=== PATIENT | male | born 1985 | race Caucasian/White ===

== ENCOUNTER 2022-01-29 12:36 | Emergency (ER) | payer OTHER, SELFPAY ==
[2022-01-29 13:00] VITALS: BP 108/66; PULSE 77; RESP 19; TEMP 37; O2SAT 98; BMI 20.9
[2022-01-29 13:13] LABS: UTC Influenza A Antigen Positive (Negative)
[2022-01-29 13:14] LABS: UTC Influenza B Antigen Negative (Negative)
--- NOTE | 2022-01-29 13:24 | HMH.EDUTC ---
[facility] – [place], [place] Disposition Clinical Impression: Influenza A Disposition: Home, Self-Care Condition on Discharge: Good Instructions: How to Avoid a Cold or Flu, Influenza, DI for Influenza -- Adult, Oseltamivir Additional Instructions: ? Start Tamiflu today if you are going to take it. Discussed risk and possible benefits. ? Lots of rest ? Increase Fluids water, Gatorade, powerade, pedialyte,if infant/toddler/child ? Alternate Tylenol and / or ibuprofen as discussed for fever, aches, chills Follow up IMMEDIATELY with your family doctor for new or worsening Symptoms OR no noticeable improvement over the next 48-72 hours, 911 for difficulty or breathing ? You or your child area contagious until no fever, aches, chills for 24 hours with medication for symptoms ? Help Prevent the spread of influenza: ? Wash your hands often. Use soap and water. Wash your hands after you use the bathroom, change a child's diapers, or sneeze. Wash your hands before you prepare or eat food. Use gel hand cleanser that has 60% alcohol, when soap and water are not available. Do not touch your eyes, nose, or mouth unless you have washed your hands first. ? Cover your mouth when you sneeze or cough. Cough into a tissue or the bend of your arm. If you use a tissue, throw it away immediately and wash your hands. ? Clean shared items with a germ-killing dry cleaner helper. Clean table surfaces, doorknobs, and light switches. Do not share towels, silverware, and dishes with people who are sick. Wash bed sheets, towels, silverware, and dishes with soap and water. ? Wear a mask over your mouth and nose if you are sick. The face mask may help protect others from becoming infected with the flu. Wear the mask when in common areas of your home or if you seek care with a healthcare provider. ? Stay away from others if you are sick. Stay at home until 24 hours after your fever and symptoms are gone. Prescriptions: Brompheniramine/Pseudoephed/Dm [Bromfed Dm Cough Syrup] 5 - 10 ml PO Q4-6H PRN #200 ml PRN Reason: Cough Transmission Status: Sent to [facility] Oseltamivir Phosphate [Tamiflu 75mg Capsule] 75 mg PO BID #10 cap Transmission Status: Sent to [facility] Referrals: Provider,Referral, [Primary Care Provider] - As needed Forms: Work/School Release Time of Disposition: 13:38 Medical Decision Making - Raimundo Inquiry Pt receiving controlled substance: No Raimundo was queried for this patient: No Vital Signs: 01/29/22 13:00 Temperature 98.6 F Temperature Source Oral Pulse Rate [Right Brachial] 77 Respiratory Rate 19 Blood Pressure [Right Arm] 108/66 L Blood Pressure Mean [Right Arm] 80 Blood Pressure Source [Right Arm] Automatic Cuff Blood Pressure Position [Right Arm] Sitting 02 Sat by Pulse Oximetry 98 Oxygen Delivery Method Room Air - Lab Data Lab results reviewed: Yes: I reviewed the patient's lab results. Lab Results 01/29/22 13:08: Influenza Type A Ag Positive A, Influenza Type B Ag Negative [facility] – [place], [place] HPI - General Stated complaint: soa, lightheaded/dizziness, shakey, diarrhea, Time Seen by Provider: 01/29/22 13:26 Mode of Arrival: Ambulatory Source of Information: Patient Limitations: No Limitations Description of Symptoms (Recalled from Triage Doc. by RN): PATIENT C/O SHAKING, BODY ACHES, DIARRHEA, SOA, LIGHT-HEADED AND DIZZINESS X 2 DAYS. 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 States that he is having chills, body aches nasal congestion and not sure if he has had a fever or not State that today he was still feeling
[2022-01-29 13:43] VITALS: BP 108/66; PULSE 77; RESP 19; TEMP 37; O2SAT 98
== END 2022-01-29 13:49 | disposition home or self-care (01) ==
PROVIDERS: Emergency Provider Nurse Practitioner
DX: J10.1 Influenza due to other identified influenza virus with other respiratory manifestations (principal); Z88.0 Allergy status to penicillin
CPT/HCPCS: 87804; 99212; G0463

== ENCOUNTER 2023-02-25 13:18 | Emergency (ER) | payer BC, SELFPAY ==
[2023-02-25 13:40] VITALS: BP 110/64; PULSE 74; RESP 19; TEMP 37.1; O2SAT 99; BMI 20.3
--- NOTE | 2023-02-25 13:53 | EXP.UTC ---
Discharge Plan Disposition Patient Disposition: Home, Self-Care Condition: Good Prescriptions Prescriptions: New azithromycin [Zithromax Z-Philip] 250 mg tablet See Rx Instructions .ROUTE .COMPLEX 5 Days Qty: 6 0RF Rx Instructions: For 250 mg dose pack: take 500 mg today (day 1), then 250 mg for 4 days (days 2-5) methylprednisolone [Medrol (Hpilip)] 4 mg tablets,dose pack See Rx Instructions .Route .COMPLEX 6 Days Qty: 21 0RF Rx Instructions: taper pack; Referrals Follow up/Referrals: Nash Winchester MD [Primary Care Provider] - See instructions Activity Restrictions/Add. Instructions Additional Instructions/Restrictions: *Monitor Temp, Over the counter Motrin or Tylenol as directed/as needed Tylenol every 4 hours and Motrin every 6 hours (as long as your family doctor has told you that you can take it) for fever or pain. and straight to ER if unable to lower temp less than 101.0 after medication given *Warm salt water gargles may help to soothe the throat *Throat Lozenges? *Warm fluids like tea with honey may help to soothe the throat? *Sleep elevated *Humidifier/Vaporizer *Flonase 2 sprays in each nostril daily but be aware that it may take 2-3 days before you notice improvement Take medication as prescribed Follow up IMMEDIATELY for new or worsening symptoms or no Noticeable improvement over the next 48-72 hours. 911 for difficulty breathing or swallowing Clinical Impressions Clinical Impression: Otitis media Qualifiers: Otitis media type: unspecified Laterality: right Qualified Code(s): H66.91 - Otitis media, unspecified, right ear Instructions Patient Instructions: Middle Ear Infection, DI for Nasal Congestion Discharge ED Provider: Jackelyn Dee [facility] [facility] – [place] HPI General Stated complaint: sore throat, jaw pain Time Seen by Provider: 02/25/23 13:53 History of Present Illness Provider Complaint: Patient states that he has been having sore throat, and pain in the right side of jaw up to his ear and it makes his ear hurt States that he has also had some nasal congestion and drainage not sure if he may have a bad tooth or bad ear Related Data Previous Rx's Medication Instructions Recorded azithromycin 250 mg tablet See Rx Instructions PO .COMPLEX 5 02/25/23 (Zithromax Z-Philip) days #6 tabs methylprednisolone 4 mg tablets in See Rx Instructions .Route 02/25/23 a dose pack (Medrol (Philip)) .COMPLEX 6 days #21 tabs Allergies Allergy/AdvReac Type Severity Reaction Status Date / Time Penicillins Allergy Verified 02/25/23 14:07 [facility] Disclaimer: The information contained in this section may have been updated after the patient was seen, as this information can be updated by other users. Social History Smoking Status: Unknown if ever smoked alcohol intake: never current occupational status: employed Travel in the last 8 weeks: None ROS Obtained: Yes All systems reviewed & no additional complaints except as documented and Yes Systems reviewed as appropriate & no additional complaints except as documented Constitutional Constitutional: Reports system reviewed and no additional complaints, except as documented, Reports as per HPI and Reports headache(s) ENT Ears, Nose, Mouth, and Throat: Reports system reviewed and no additional complaints, except as documented, Reports as per HPI, Reports dental pain, Reports otalgia, Reports headache(s), Reports nasal congestion, Reports sinus pressure and Reports sore throat Comments: pain in right side of jaw area denies injury Cardiovascular Cardiovascular: Reports system reviewed and no additional complaints, except as documented and Reports as per HPI Respiratory Respiratory: Reports system reviewed and no additional complaints, except as documented, Reports as per HPI and Reports cough Gastrointestinal Gastrointestingal: Reports system reviewed and no additional complaints, except as documented and as per HPI
[2023-02-25 14:18] VITALS: BP 110/64; PULSE 74; RESP 19; TEMP 37.1; O2SAT 99
== END 2023-02-25 14:18 | disposition home or self-care (01) ==
PROVIDERS: Emergency Provider Nurse Practitioner; PCP Internal Medicine Adolescent Medicine
DX: H66.91 Otitis media, unspecified, right ear (principal); R68.84 Jaw pain; R07.0 Pain in throat
CPT/HCPCS: 99212; 99214; G0463

== ENCOUNTER 2024-06-25 10:29 | Emergency (ER) | payer BC, SELFPAY ==
[2024-06-25 11:20] VITALS: BP 121/77; PULSE 71; RESP 16; TEMP 36.6; O2SAT 97; BMI 21.4
[2024-06-25 11:32] LABS: UTC Strep Screen (Rapid) Negative (Negative)
--- NOTE | 2024-06-25 11:37 | EXP.UTC ---
Discharge Plan Disposition Patient Disposition: Home, Self-Care Condition: Good Prescriptions Prescriptions: New azithromycin [Zithromax Z-Philip] 250 mg tablet See Rx Instructions .ROUTE .COMPLEX 5 Days Qty: 6 0RF Rx Instructions: For 250 mg dose pack: take 500 mg today (day 1), then 250 mg for 4 days (days 2-5) methylprednisolone [Medrol (Philip)] 4 mg tablets,dose pack See Rx Instructions .Route .COMPLEX 6 Days Qty: 21 0RF Rx Instructions: taper pack; [id number] [Bromfed DM] 2-30-10 mg/5 mL syrup 5 - 10 ml PO Q6H PRN (Reason: cold symptoms) Qty: 200 0RF No Action azithromycin [Zithromax Z-Philip] 250 mg tablet See Rx Instructions .ROUTE .COMPLEX 5 Days Qty: 6 0RF Rx Instructions: For 250 mg dose pack: take 500 mg today (day 1), then 250 mg for 4 days (days 2-5) methylprednisolone [Medrol (Philip)] 4 mg tablets,dose pack See Rx Instructions .Route .COMPLEX 6 Days Qty: 21 0RF Rx Instructions: taper pack; Referrals Follow up/Referrals: Nash Winchester MD [Primary Care Provider] - See instructions Activity Restrictions/Add. Instructions Additional Instructions/Restrictions: *Monitor Temp, Over the counter Motrin or Tylenol as directed/as needed Tylenol every 4 hours and Motrin every 6 hours (as long as your family doctor has told you that you can take it) for fever or pain. and straight to ER if unable to lower temp less than 101.0 after medication given *Warm salt water gargles may help to soothe the throat *Throat Lozenges? *Warm fluids like tea with honey may help to soothe the throat? *Sleep elevated *Humidifier/Vaporizer *Bromfed may cause drowsiness. Know how it effects you (your child) before driving, caring for small child, or sending your child to school. Not other antihistamines/allergy medications while taking bromfed Your throat swab was sent for culture. Those results are typically sent to your primary care. Be sure to follow up in 2-3 days with your family doctor/primary care physician if no improvement so they can review those result and treat if necessary. If you don?t have a primary care doctor, I recommend you get one but in the mean time, you will have to return to a walk in clinic Follow up IMMEDIATELY for new or worsening symptoms or no Noticeable improvement over the next 48-72 hours. 911 for difficulty breathing or swallowing You were tested for today for Upper Respiratory Panel with COVID19 your test result should be back in the next 24 hours, you may check the [facility] for results of your test Clinical Impressions Clinical Impression: Sinusitis Stand Alone Forms Stand Alone Forms: Work/School Release Instructions Patient Instructions: DI for Sinusitis, Sinusitis Print Language Print Language: Kinyarwanda Discharge ED Provider: Jackelyn Dee [facility] [place] HPI General Stated complaint: cough, sore throat, sneezing Mode of Arrival: Ambulatory Source of Information: Patient Limitations: No Limitations Time Seen by Provider: 06/25/24 11:37 Description of Symptoms (Recalled from Triage Doc. by RN): Patient reports cough, runny nose, sore throat and right ear pain. HEENT Symptoms (Recalled from RN notes): Yes Resp Symptoms (Recalled from RN notes): No Skin Symptoms (Recalled from RN notes): No MS Symptoms (Recalled from RN notes): No Functional Status (Recalled from RN notes): wnl History of Present Illness Provider Complaint: Patient states that he has been sick since last week States he has been having sinus pain and pressure, sore throat and pain and pressure in in his right ear States today he isnt feeling any better so he came in to get checked Related Data Previous Rx's ?Medication ?Instructions ?Recorded azithromycin 250 mg tablet See Rx Instructions PO .COMPLEX 5 02/25/23 (Zithromax Z-Philip) days #6 tabs methylprednisolone 4 mg tablets in See Rx Instructions .Route 02/25/23
[2024-06-25 12:10] VITALS: BP 121/77; PULSE 71; RESP 16; TEMP 36.6; O2SAT 97
== END 2024-06-25 12:11 | disposition home or self-care (01) ==
PROVIDERS: Emergency Provider Nurse Practitioner; PCP Internal Medicine Adolescent Medicine
DX: J01.90 Acute sinusitis, unspecified (principal); H92.01 Otalgia, right ear; R07.0 Pain in throat
CPT/HCPCS: 87635; 87880; 99212; 99214; G0463

== ENCOUNTER 2024-10-31 13:03 | Inpatient (IN) | payer BC, SELFPAY ==
[2024-10-31] VITALS (17 sets, daily range): BP systolic 121–136; BP diastolic 68–87; PULSE 93–127; RESP 16–37; TEMP 37.1–37.4; O2SAT 88–100; BMI 19.6
--- NOTE | 2024-10-31 13:34 | XR_ITS ---
PROCEDURE INFORMATION: Exam: XR Chest Exam date and time: 10/31/2024 2:22 PM Age: 38 years old Clinical indication: Cough; Additional info: Cough, hemoptysis TECHNIQUE: Imaging protocol: Radiologic exam of the chest. Views: 1 view. COMPARISON: 1. CR XR CHEST PORTABLE 10/31/2024 2:[address] CHEST WO CON 10/31/2024 2:18 PM FINDINGS: Lungs: See Pleural spaces finding. Pleural spaces: Hazy consolidating airspace disease in the lateral right upper lobe just above the minor fissure that corresponds to the consolidation compatible with pneumonia on the chest CT. Additional subtle scattered airspace opacities noted in a more diffuse fashion throughout most of the remainder of the right lung and the left mid and lower lung. Lungs are otherwise clear. Heart/Mediastinum: Unremarkable. No cardiomegaly. Bones/joints: Unremarkable. IMPRESSION: Right upper lobe pneumonia. More widespread patchy subtle airspace opacities also compatible with infectious process of some type including the possibility of atypical infections.
--- NOTE | 2024-10-31 13:35 | CT_ITS ---
PROCEDURE INFORMATION: Exam: CT Abdomen And Pelvis With Contrast Exam date and time: 10/31/2024 2:23 PM Age: 38 years old Clinical indication: Abdominal pain; Localized; Lower; Additional info: Lower abdominal pain TECHNIQUE: Imaging protocol: Computed tomography of the abdomen and pelvis with contrast. 3D rendering (Not supervised by radiologist): MIP and/or 3D reconstructed images were created by the technologist. Radiation optimization: All CT scans at this facility use at least one of these dose optimization techniques: automated exposure control; mA and/or kV adjustment per patient size (includes targeted exams where dose is matched to clinical indication); or iterative reconstruction. Contrast material: ISOVUE; Contrast volume: 75 ml; Contrast route: IV; COMPARISON: CT ANGIO CHEST PE PROTOCOL 10/31/2024 2:23 PM FINDINGS: Lungs: Refer to CT chest for lung bases. Liver: Normal. No mass. Gallbladder and biliary ducts: Normal. No calcified stones. No ductal dilation. Pancreas: Normal. No ductal dilation. Spleen: Normal. No splenomegaly. Adrenal glands: Normal. No mass. Kidneys and ureters: Normal. No hydronephrosis. Stomach and bowel: Unremarkable. No obstruction. No mucosal thickening. Appendix: No evidence of appendicitis. Intraperitoneal space: Unremarkable. No free air. No significant fluid collection. Vasculature: Unremarkable. No abdominal aortic aneurysm. Lymph nodes: Unremarkable. No enlarged lymph nodes. Urinary bladder: Unremarkable as visualized. Reproductive: Unremarkable as visualized. Bones/joints: Unremarkable. No acute fracture. Soft tissues: Unremarkable. IMPRESSION: No acute findings.
--- NOTE | 2024-10-31 13:40 | ECG_ITS ---
APPROVED REPORT Exam: Resting ECG HR:102 bpm ECG Measurements Heart Rate 102 AXES ND 118 P 66 QRSd 100 QRS -63 QT 339 T 81 QTc 398 Conclusion SINUS TACHYCARDIA WITH SHORT ND INTERVAL POSSIBLE LEFT ATRIAL ENLARGEMENT [-0.1mV P-WAVE IN V1/V2] LEFT ANTERIOR FASCICULAR BLOCK [QRS AXIS <= -45, QR IN I, RS IN II] ABNORMAL ECG UNCONFIRMED REPORT Electronically signed by : DELFINO MOSELEY, 11/02/2024 06:52:22
[2024-10-31] MEDS: 0.9 % SODIUM CHLORIDE 1000ML 1,000 ML 999 ML IV (13:49)
--- NOTE | 2024-10-31 13:51 | [facility].EDGENADL ---
Discharge Plan Disposition Patient Disposition: Admitted Condition: Fair Clinical Impressions Clinical Impression: Pneumonia, Hypokalemia Discharge ED Provider: Elvin Woods [facility] Adult HPI <Karthikeyan Cox MD - Last Filed: 10/31/24 15:52> General Chief complaint: Shortness of Breath/Dyspnea Stated complaint: cough, coughed up blood, lightheaded Time Seen by Provider: 10/31/24 13:28 Mode of Arrival: Ambulatory Source of Information: Patient Limitations: No Limitations Description of Symptoms (Recalled from ER Triage Doc. by RN): coughing up blood,short of breath,fever,weakness Related Data Previous Rx's ?Medication ?Instructions ?Recorded azithromycin 250 mg tablet See Rx Instructions PO .COMPLEX 5 02/25/23 (Zithromax Z-Philip) days #6 tabs methylprednisolone 4 mg tablets in See Rx Instructions .Route 02/25/23 a dose pack (Medrol (Philip)) .COMPLEX 6 days #21 tabs azithromycin 250 mg tablet See Rx Instructions PO .COMPLEX 5 06/25/24 (Zithromax Z-Philip) days #6 tabs azjuxnyowehlilw-dkkfyfptcmiamfn-JR 5 - 10 ml PO Q6H PRN cold symptoms 06/25/24 2 mg-30 mg-10 mg/5 mL oral syrup #200 mL (Bromfed DM) methylprednisolone 4 mg tablets in See Rx Instructions .Route 06/25/24 a dose pack (Medrol (Philip)) .COMPLEX 6 days #21 tabs Allergies Allergy/AdvReac Type Severity Reaction Status Date / Time Penicillins Allergy Verified 02/25/23 14:07 <SHAE Krause - Last Filed: 10/31/24 20:28> History of Present Illness HPI narrative: Patient presents complaining of 1 week of cough and congestion. He has had a fever as well. Last night he developed dark red hemoptysis. Denies any nosebleeding. Reports he has occasional productive cough. He reports he has not had any recent nausea vomiting diarrhea in the last 4 days, however did have some prior to that. His has similar symptoms. MD complaint: hemoptysis Onset (ago): week(s) Location: chest Severity: moderate Consistency: intermittent Relieving factors: none Exacerbating factors: none Associated symptoms: fever/chills; negative nausea/vomiting PFSH <Karthikeyan Cox MD - Last Filed: 10/31/24 15:52> [facility] Disclaimer: The information contained in this section may have been updated after the patient was seen, as this information can be updated by other users. Social History Smoking Status: Current every day smoker alcohol intake: never current occupational status: employed Travel in the last 8 weeks: None Have you lived/traveled outside [place] in past 30 days?: No Contact w/someone who lives/traveled outside [place] past 30 days?: No Exposure to someone with infectious disease in past 14 days?: No Do you have a fever (greater than 100.4 F or 38 C)?: No Have you tested positive for COVID-19: No Exposed to someone with COVID-19 in past 14 days?: No Do you have a sore throat?: No Do you have a cough?: Yes Do you have any weakness?: No Do you have any diarrhea?: No Are you experiencing any unusual bleeding?: Yes Do you have any muscle aches/pain?: No Do you have any abdominal pain?: No Are you experiencing loss of taste or smell?: No <SHAE Karuse - Last Filed: 10/31/24 20:28> ROS Obtained: Yes Systems reviewed as appropriate & no additional complaints except as documented Physical Exam <SHAE Krause - Last Filed: 10/31/24 20:28> General General appearance: alert and in no apparent distress Head Head exam: atraumatic and normocephalic Eye Eye exam: Present normal appearance and EOMI Chest Chest inspection: Present symmetric chest wall rise Respiratory Respiratory exam: Present normal lung sounds bilaterally; Absent wheezes or stridor Cardiovascular Cardiovascular exam: Present regular rate, normal rhythm and tachycardia; Absent systolic murmur Abdominal Exam Abdominal exam: Present soft; Absent distention or guarding Abdominal tenderness: Present RLQ and LLQ Extremities Exam Extremities exam: Present full ROM Neurological Exam Neurological exam: Present alert and oriented X3 Psychiatric Psychiatric exam: Present normal affect and normal mood Skin Skin exam: Present warm, dry and intact Medical Decision Making <Karthikeyan Cox MD - Last Filed: 10/31/24 15:52> Medical Records Screening: Per USPSTF and CDC recommendations, given the prevalence of disease in our region, it is our hospital?s policy to screen for HIV and viral Hepatitis for all patients aged 18 and over and those with ongoing risk factors. Vital Signs: 10/31/24 13:04 10/31/24 13:45 10/31/24 14:00 Temperature 99 F Temperature Source Oral Pulse Rate 101 H 93 H Pulse Rate [Right] 127 H Respiratory Rate 22 18 Blood Pressure 121/80 129/78 Blood Pressure [Right Arm] 130/77 Blood Pressure Mean [Right Arm] 94 02 Sat by Pulse Oximetry 91 L 92 L 92 L Oxygen Delivery Method Room Air Room Air Room Air 10/31/24 14:30 10/31/24 14:31 10/31/24 14:45 Temperature Temperature Source Pulse Rate 113 H 110 H 97 H Pulse Rate [Right] Respiratory Rate 27 H 21 36 H Blood Pressure 131/87 Blood Pressure [Right Arm] Blood Pressure Mean [Right Arm] 02 Sat by Pulse Oximetry 88 L 91 L 88 L Oxygen Delivery Method 10/31/24 15:00 10/31/24 15:15 10/31/24 15:30 Temperature Temperature Source Pulse Rate 100 H 96 H 95 H Pulse Rate [Right] Respiratory Rate 37 H Blood Pressure 133/82 Blood Pressure [Right Arm] Blood Pressure Mean [Right Arm] 02 Sat by Pulse Oximetry 94 L 94 L 91 L Oxygen Delivery Method 10/31/24 16:00 10/31/24 16:30 10/31/24 17:00 Temperature Temperature Source Pulse Rate 95 H 97 H 104 H Pulse Rate [Right] Respiratory Rate 26 H 23 27 H Blood Pressure 136/80 133/76 123/74 Blood Pressure [Right Arm] Blood Pressure Mean [Right Arm] 02 Sat by Pulse Oximetry 93 L 94 L 90 L Oxygen Delivery Method Room Air Room Air Room Air 10/31/24 17:23 Temperature 98.7 F Temperature Source Pulse Rate 107 H Pulse Rate [Right] Respiratory Rate 20 Blood Pressure 123/74 Blood Pressure [Right Arm] Blood Pressure Mean [Right Arm] 02 Sat by Pulse Oximetry Oxygen Delivery Method Room Air Lab Data Lab Results 10/31/24 13:35: WBC 9.5, RBC 5.04, Hgb 15.9, Hct 44.5, MCV 88.3, MCH 31.5 H, MCHC 35.7 H, RDW 13.1, Plt Count 305, MPV 10.0, Neut % (Auto) 85.9 H, Lymph % (Auto) 7.8 L, [place] % (Auto) 5.2, Eos % (Auto) 0.3, Baso % (Auto) 0.4, Neut # (Auto) 8.2 H, Lymph # (Auto) 0.7, [place] # (Auto) 0.5, Eos # (Auto) 0.0, Baso # (Auto) 0.0, Total Counted 100, Neutrophils % (Manual) 89 H, Lymphocytes % (Manual) 6 L, Monocytes % (Manual) 5, Platelet Estimate Normal, RBC Morphology Normal, Sodium 135 L, Potassium 2.8 L*, Chloride 95 L, Carbon Dioxide 32 H, Anion Gap 10.8, BUN 8 L, Creatinine 0.70, Estimated Creat Clear 133, Estimated GFR 126, Est GFR ( Amer) 153, Glucose 110 H, Calcium 8.5, Magnesium 2.3, Total Bilirubin 0.9, AST 167 H, ALT 157 H, Alkaline Phosphatase 125, Troponin I < 0.01, Total Protein 7.5, Albumin 4.1, Globulin 3.4 H, Albumin/Globulin Ratio 1.2, Lipase 53, HIV Ag/Ab Combo Qual Negative 10/31/24 13:47: VBG pH 7.41, VBG pCO2 46.2, VBG pO2 31.3, VBG HCO3 28.8, VBG Total CO2 30.2 H, VBG O2 Saturation 66.4, VBG Base Excess 4.2 H, VBG Lactic Acid 1.8 10/31/24 13:54: SARS-CoV-2 (PCR) Not detected, Influenza A Untype (PCR) Not detected, Influenza Type B (PCR) Not detected 10/31/24 15:18: Lactate 1.4 10/31/24 15:20: Urine Color Yellow, Urine Appearance Clear, Urine pH 7.0, Ur Specific Banner 1.015, Urine Protein Negative, Urine Glucose (UA) Negative, Urine Ketones 1+, Urine Blood Trace-i, Urine Nitrate Negative, Urine Bilirubin Negative, Urine Urobilinogen 0.2, Ur Leukocyte Esterase Negative, Urine RBC Occasional, Urine WBC Occasional, Ur Squamous Epith Cells Occasional, Urine Bacteria 1+ 10/31/24 16:45: Troponin I < 0.01 10/31/24 13:35 10/31/24 13:35 Orders (Tests/Meds): ED MEDICATIONS Generic Name Dose Route Start Last Admin Trade Name Ferny PRN Reason Stop Dose Admin Acetaminophen 650 mg 10/31/24 16:55 Acetaminophen 325mg Tab PO 11/30/24 16:54 Q4HP PRN Fever or Mild Pain (1-3) Albuterol/Ipratropium 3 ml 10/31/24 20:55 Ipratropium/Albuterol 3 Ml Neb IH 11/30/24 20:54 Q6RT YAMILET Guaifenesin 600 mg 10/31/24 21:00 Guaifenesin 600 Mg Tab.Er.12h PO 11/30/24 20:59 BID YAMILET Guaifenesin 10 ml 10/31/24 20:56 Guaifenesin/Dextromethorphan 200mg/20mg 10ml Udc PO 11/30/24 20:55 Q4HP PRN Cough Ceftriaxone Sodium 1 gm/ 50 mls @ 100 mls/hr 10/31/24 15:30 10/31/24 16:07 Sodium Chloride IV 11/10/24 15:29 100 mls/hr Q24H YAMILET Administration Ondansetron HCl 4 mg 10/31/24 16:55 Ondansetron 4mg/2ml Vial IV 11/30/24 16:54 Q8HP PRN Nausea Sodium Chloride 10 ml 10/31/24 13:35 Sodium Chloride 0.9% 10ml Flush Syringe IV 11/30/24 13:34 NEEDED PRN Maintain IV Site Discontinued Medications Generic Name Dose Route Start Last Admin Trade Name Ferny PRN Reason Stop Dose Admin Sodium Chloride 1,000 mls @ 999 mls/hr 10/31/24 13:35 10/31/24 13:49 Sod Chlor 0.9% 1000ml Bag IV 10/31/24 14:35 999 mls/hr .Q1H1M ONE Administration Potassium Chloride/Water 100 mls @ 50 mls/hr 10/31/24 14:28 10/31/24 16:47 Potassium Chloride 20meq/100ml Ivpb IV 10/31/24 18:27 50 mls/hr Q2H YAMILET Administration Doxycycline Hyclate 100 mg/ 250 mls @ 166.667 mls/hr 10/31/24 15:20 10/31/24 16:48 Sodium Chloride IV 10/31/24 15:21 166.667 mls/hr ONCE ONE Administration Iopamidol 80 ml 10/31/24 14:24 10/31/24 14:26 Iopamidol-370 (76%);100ml Bottle IV 10/31/24 14:25 80 ml ONCE ONE Administration Potassium Chloride 40 meq 10/31/24 14:26 10/31/24 14:48 Potassium Chloride 20meq Tab PO 10/31/24 14:27 40 meq ONCE ONE Administration Sodium Chloride 10 ml 10/31/24 14:24 10/31/24 14:26 Sodium Chloride 0.9% 10ml Syr (Rad Only) IV 10/31/24 14:25 10 ml ONCE ONE Administration Sodium Chloride 50 ml 10/31/24 14:24 10/31/24 14:26 0.9 % Sodium Chloride 50 Ml Vial IV 10/31/24 14:25 50 ml ONCE ONE Administration ORDERS Category Date Time Status CT abdomen pelvis w con Stat Cat Scan 10/31/24 13:[address] angio chest PE protocol Stat Cat Scan 10/31/24 14:[address] chest wo con Stat Cat Scan 10/31/24 14:16 Completed Chest XR -- portable [XR chest portable] Stat Exams 10/31/24 13:34 Completed CBC w/Auto Diff [Complete Blood Count Auto Diff] Stat Lab 10/31/24 13:35 Completed CMP [Comprehensive Metabolic Panel] Stat Lab 10/31/24 13:35 Completed Complete Blood Count Auto Diff AMLAB Lab 11/01/24 06:00 Ordered Complete Blood Count Auto Diff AMLAB Lab 11/02/24 06:00 Ordered Complete Blood Count Auto Diff AMLAB Lab 11/03/24 06:00 Ordered Complete Blood Count Auto Diff AMLAB Lab 11/04/24 06:00 Ordered Complete Blood Count Auto Diff AMLAB Lab 11/05/24 06:00 Ordered Comprehensive Metabolic Panel AMLAB Lab 11/01/24 06:00 Ordered Comprehensive Metabolic Panel AMLAB Lab 11/02/24 06:00 Ordered Comprehensive Metabolic Panel AMLAB Lab 11/03/24 06:00 Ordered Comprehensive Metabolic Panel AMLAB Lab 11/04/24 06:00 Ordered Comprehensive Metabolic Panel AMLAB Lab 11/05/24 06:00 Ordered Fungitell Beta D Glucan Stat Lab 10/31/24 13:55 Received HIV Combo Stat Lab 10/31/24 13:35 Completed Hep C Ab with Reflex to RNA Stat Lab 10/31/24 13:35 Received Lactic Acid Stat Lab 10/31/24 15:18 Completed Lipase Stat Lab 10/31/24 13:35 Completed Magnesium AMLAB Lab 11/01/24 06:00 Ordered Magnesium AMLAB Lab 11/02/24 06:00 Ordered Magnesium AMLAB Lab 11/03/24 06:00 Ordered Magnesium AMLAB Lab 11/04/24 06:00 Ordered Magnesium AMLAB Lab 11/05/24 06:00 Ordered Magnesium Stat Lab 10/31/24 13:35 Completed Rapid PCR Covid and Flu A/B Stat Lab 10/31/24 13:54 Completed Troponin I Q3H Lab 10/31/24 16:45 Completed Troponin I Q3H Lab 10/31/24 19:43 Completed Troponin I Stat Lab 10/31/24 13:35 Completed UA [Urinalysis and Microscopic] Stat Lab 10/31/24 15:20 Completed Blood Culture Stat Micro 10/31/24 15:17 Received VBG [Venous Blood Gas] Stat RT 10/31/24 13:47 Completed ECG Data Tracing #1: Independently interpreted by me rate is 102, rhythm is regular, axis is leftward deviated, no ST elevation in anatomical contiguous leads, QTc 398. No delta wave. Medical Decision Narrative: In summary patient is a 38-year-old male who presents the emergency department for evaluation of hemoptysis. Patient is hypoxic, tachycardic upon arrival, afebrile. Mild lower abdominal tenderness, tachycardia. Differential diagnosis includes pneumonia, pulmonary embolism, viral respiratory infection, dehydration. Initial workup will be conducted with labs, CTA chest, CT abdomen pelvis, EKG. Initial inventions include IV fluids. Initial workup reviewed by me [hematologic labs are remarkable for? Imaging remarkable for? Urinalysis remarkable for?]. Upon repeat evaluation [patient had acceptable resolution of symptoms, had persistent pain for which additional interventions were conducted (describe interventions), tolerated p.o., was ambulatory, etc.]. Given this [patient is appropriate for discharge at this time will be discharged with a prescription for? The case was discussed with hospital medicine regarding management and they will meet the patient their service for continued valuation at this time? Etc.]. Karthikeyan Cox: I was consulted by the JOEL, and we discussed the complexity of the problems being addressed. I approved the treatment and management plan for this patient's care in the emergency department, thus performing a substantive portion of the medical decision making. I improved with initial workup and plan, initial hematologic labs are remarkable for hypokalemia which is being repleted, mild transaminitis initial troponin undetectably low. Antibiotics on board. Formal CT read pending at time of transition of care to the oncoming physician, Dr. Woods. <SHAE Krause - Last Filed: 10/31/24 20:28> Raimundo Inquiry Pt receiving controlled substance: No Vital Signs: 10/31/24 13:04 10/31/24 13:45 10/31/24 14:00 Temperature 99 F Temperature Source Oral Pulse Rate 101 H 93 H Pulse Rate [Right] 127 H Respiratory Rate 22 18 Blood Pressure 121/80 129/78 Blood Pressure [Right Arm] 130/77 Blood Pressure Mean [Right Arm] 94 02 Sat by Pulse Oximetry 91 L 92 L 92 L Oxygen Delivery Method Room Air Room Air Room Air 10/31/24 14:30 10/31/24 14:31 10/31/24 14:45 Temperature Temperature Source Pulse Rate 113 H 110 H 97 H Pulse Rate [Right] Respiratory Rate 27 H 21 36 H Blood Pressure 131/87 Blood Pressure [Right Arm] Blood Pressure Mean [Right Arm] 02 Sat by Pulse Oximetry 88 L 91 L 88 L Oxygen Delivery Method 10/31/24 15:00 10/31/24 15:15 10/31/24 15:30 Temperature Temperature Source Pulse Rate 100 H 96 H 95 H Pulse Rate [Right] Respiratory Rate 37 H Blood Pressure 133/82 Blood Pressure [Right Arm] Blood Pressure Mean [Right Arm] 02 Sat by Pulse Oximetry 94 L 94 L 91 L Oxygen Delivery Method 10/31/24 16:00 10/31/24 16:30 10/31/24 17:00 Temperature Temperature Source Pulse Rate 95 H 97 H 104 H Pulse Rate [Right] Respiratory Rate 26 H 23 27 H Blood Pressure 136/80 133/76 123/74 Blood Pressure [Right Arm] Blood Pressure Mean [Right Arm] 02 Sat by Pulse Oximetry 93 L 94 L 90 L Oxygen Delivery Method Room Air Room Air Room Air 10/31/24 17:23 Temperature 98.7 F Temperature Source Pulse Rate 107 H Pulse Rate [Right] Respiratory Rate 20 Blood Pressure 123/74 Blood Pressure [Right Arm] Blood Pressure Mean [Right Arm] 02 Sat by Pulse Oximetry Oxygen Delivery Method Room Air Lab Data Lab Results 10/31/24 13:35: WBC 9.5, RBC 5.04, Hgb 15.9, Hct 44.5, MCV 88.3, MCH 31.5 H, MCHC 35.7 H, RDW 13.1, Plt Count 305, MPV 10.0, Neut % (Auto) 85.9 H, Lymph % (Auto) 7.8 L, [place] % (Auto) 5.2, Eos % (Auto) 0.3, Baso % (Auto) 0.4, Neut # (Auto) 8.2 H, Lymph # (Auto) 0.7, [place] # (Auto) 0.5, Eos # (Auto) 0.0, Baso # (Auto) 0.0, Total Counted 100, Neutrophils % (Manual) 89 H, Lymphocytes % (Manual) 6 L, Monocytes % (Manual) 5, Platelet Estimate Normal, RBC Morphology Normal, Sodium 135 L, Potassium 2.8 L*, Chloride 95 L, Carbon Dioxide 32 H, Anion Gap 10.8, BUN 8 L, Creatinine 0.70, Estimated Creat Clear 133, Estimated GFR 126, Est GFR ( Amer) 153, Glucose 110 H, Calcium 8.5, Magnesium 2.3, Total Bilirubin 0.9, AST 167 H, ALT 157 H, Alkaline Phosphatase 125, Troponin I < 0.01, Total Protein 7.5, Albumin 4.1, Globulin 3.4 H, Albumin/Globulin Ratio 1.2, Lipase 53, HIV Ag/Ab Combo Qual Negative 10/31/24 13:47: VBG pH 7.41, VBG pCO2 46.2, VBG pO2 31.3, VBG HCO3 28.8, VBG Total CO2 30.2 H, VBG O2 Saturation 66.4, VBG Base Excess 4.2 H, VBG Lactic Acid 1.8 10/31/24 13:54: SARS-CoV-2 (PCR) Not detected, Influenza A Untype (PCR) Not detected, Influenza Type B (PCR) Not detected 10/31/24 15:18: Lactate 1.4 10/31/24 15:20: Urine Color Yellow, Urine Appearance Clear, Urine pH 7.0, Ur Specific [place] 1.015, Urine Protein Negative, Urine Glucose (UA) Negative, Urine Ketones 1+, Urine Blood Trace-i, Urine Nitrate Negative, Urine Bilirubin Negative, Urine Urobilinogen 0.2, Ur Leukocyte Esterase Negative, Urine RBC Occasional, Urine WBC Occasional, Ur Squamous Epith Cells Occasional, Urine Bacteria 1+ 10/31/24 16:45: Troponin I < 0.01 Orders (Tests/Meds): ED MEDICATIONS Generic Name Dose Route Start Last Admin Trade Name Freq PRN Reason Stop Dose Admin Acetaminophen 650 mg 10/31/24 16:55 Acetaminophen 325mg Tab PO 11/30/24 16:54 Q4HP PRN Fever or Mild Pain (1-3) Albuterol/Ipratropium 3 ml 10/31/24 20:55 Ipratropium/Albuterol 3 Ml Neb IH 11/30/24 20:54 Q6RT YAMILET Guaifenesin 600 mg 10/31/24 21:00 Guaifenesin 600 Mg Tab.Er.12h PO 11/30/24 20:59 BID YAMILET Guaifenesin 10 ml 10/31/24 20:56 Guaifenesin/Dextromethorphan 200mg/20mg 10ml Udc PO 11/30/24 20:55 Q4HP PRN Cough Ceftriaxone Sodium 1 gm/ 50 mls @ 100 mls/hr 10/31/24 15:30 10/31/24 16:07 Sodium Chloride IV 11/10/24 15:29 100 mls/hr Q24H YAMILET Administration Ondansetron HCl 4 mg 10/31/24 16:55 Ondansetron 4mg/2ml Vial IV 11/30/24 16:54 Q8HP PRN Nausea Sodium Chloride 10 ml 10/31/24 13:35 Sodium Chloride 0.9% 10ml Flush Syringe IV 11/30/24 13:34 NEEDED PRN Maintain IV Site Discontinued Medications Generic Name Dose Route Start Last Admin Trade Name Freq PRN Reason Stop Dose Admin Sodium Chloride 1,000 mls @ 999 mls/hr 10/31/24 13:35 10/31/24 13:49 Sod Chlor 0.9% 1000ml Bag IV 10/31/24 14:35 999 mls/hr .Q1H1M ONE Administration Potassium Chloride/Water 100 mls @ 50 mls/hr 10/31/24 14:28 10/31/24 16:47 Potassium Chloride 20meq/100ml Ivpb IV 10/31/24 18:27 50 mls/hr Q2H YAMILET Administration Doxycycline Hyclate 100 mg/ 250 mls @ 166.667 mls/hr 10/31/24 15:20 10/31/24 16:48 Sodium Chloride IV 10/31/24 15:21 166.667 mls/hr ONCE ONE Administration Iopamidol 80 ml 10/31/24 14:24 10/31/24 14:26 Iopamidol-370 (76%);100ml Bottle IV 10/31/24 14:25 80 ml ONCE ONE Administration Potassium Chloride 40 meq 10/31/24 14:26 10/31/24 14:48 Potassium Chloride 20meq Tab PO 10/31/24 14:27 40 meq ONCE ONE Administration Sodium Chloride 10 ml 10/31/24 14:24 10/31/24 14:26 Sodium Chloride 0.9% 10ml Syr (Rad Only) IV 10/31/24 14:25 10 ml ONCE ONE Administration Sodium Chloride 50 ml 10/31/24 14:24 10/31/24 14:26 0.9 % Sodium Chloride 50 Ml Vial IV 10/31/24 14:25 50 ml ONCE ONE Administration ORDERS Category Date Time Status CT abdomen pelvis w con Stat Cat Scan 10/31/24 13:[address] angio chest PE protocol Stat Cat Scan 10/31/24 14:[address] chest wo con Stat Cat Scan 10/31/24 14:16 Completed Chest XR -- portable [XR chest portable] Stat Exams 10/31/24 13:34 Completed CBC w/Auto Diff [Complete Blood Count Auto Diff] Stat Lab 10/31/24 13:35 Completed CMP [Comprehensive Metabolic Panel] Stat Lab 10/31/24 13:35 Completed Complete Blood Count Auto Diff AMLAB Lab 11/01/24 06:00 Ordered Complete Blood Count Auto Diff AMLAB Lab 11/02/24 06:00 Ordered Complete Blood Count Auto Diff AMLAB Lab 11/03/24 06:00 Ordered Complete Blood Count Auto Diff AMLAB Lab 11/04/24 06:00 Ordered Complete Blood Count Auto Diff AMLAB Lab 11/05/24 06:00 Ordered Comprehensive Metabolic Panel AMLAB Lab 11/01/24 06:00 Ordered Comprehensive Metabolic Panel AMLAB Lab 11/02/24 06:00 Ordered Comprehensive Metabolic Panel AMLAB Lab 11/03/24 06:00 Ordered Comprehensive Metabolic Panel AMLAB Lab 11/04/24 06:00 Ordered Comprehensive Metabolic Panel AMLAB Lab 11/05/24 06:00 Ordered Fungitell Beta D Glucan Stat Lab 10/31/24 13:55 Received HIV Combo Stat Lab 10/31/24 13:35 Completed Hep C Ab with Reflex to RNA Stat Lab 10/31/24 13:35 Received Lactic Acid Stat Lab 10/31/24 15:18 Completed Lipase Stat Lab 10/31/24 13:35 Completed Magnesium AMLAB Lab 11/01/24 06:00 Ordered Magnesium AMLAB Lab 11/02/24 06:00 Ordered Magnesium AMLAB Lab 11/03/24 06:00 Ordered Magnesium AMLAB Lab 11/04/24 06:00 Ordered Magnesium AMLAB Lab 11/05/24 06:00 Ordered Magnesium Stat Lab 10/31/24 13:35 Completed Rapid PCR Covid and Flu A/B Stat Lab 10/31/24 13:54 Completed Troponin I Q3H Lab 10/31/24 16:45 Completed Troponin I Q3H Lab 10/31/24 19:43 Completed Troponin I Stat Lab 10/31/24 13:35 Completed UA [Urinalysis and Microscopic] Stat Lab 10/31/24 15:20 Completed Blood Culture Stat Micro 10/31/24 15:17 Received VBG [Venous Blood Gas] Stat RT 10/31/24 13:47 Completed Radiology Data #1: Image(s): Chest IMPRESSION: Right upper lobe pneumonia. More widespread patchy subtle airspace opacities also compatible with infectious process of some type including the possibility of atypical infections. Medical Decision Narrative: In summary patient is a 38-year-old male who presents the emergency department for evaluation of hemoptysis. Patient is hypoxic, tachycardic upon arrival, afebrile. Mild lower abdominal tenderness, tachycardia. Differential diagnosis includes pneumonia, pulmonary embolism, viral respiratory infection, dehydration. Initial workup will be conducted with labs, CTA chest, CT abdomen pelvis, EKG. Initial inventions include IV fluids. Initial workup reviewed by fl hypokalemia, pneumonia on imaging. Upon repeat evaluation patient has had improvement of symptoms with fluids and potassium replacement. Given this patient admitted to the hospitalist service given his hypoxia, tachycardia, electrolyte abnormalities and consolidation with patchy airspace disease on imaging. Karthikeyan Cox: I was consulted by the JOEL, and we discussed the complexity of the problems being addressed. I approved the treatment and management plan for this patient's care in the emergency department, thus performing a substantive portion of the medical decision making. I improved with initial workup and plan, initial hematologic labs are remarkable for hypokalemia which is being repleted, mild transaminitis initial troponin undetectably low. Antibiotics on board. Formal CT read pending at time of transition of care to the oncoming physician, Dr. Woods. <Elvin Woods MD - Last Filed: 10/31/24 21:19> Vital Signs: 10/31/24 13:04 10/31/24 13:45 10/31/24 14:00 Temperature 99 F Temperature Source Oral Pulse Rate 101 H 93 H Pulse Rate [Right] 127 H Respiratory Rate 22 18 Blood Pressure 121/80 129/78 Blood Pressure [Right Arm] 130/77 Blood Pressure Mean [Right Arm] 94 02 Sat by Pulse Oximetry 91 L 92 L 92 L Oxygen Delivery Method Room Air Room Air Room Air 10/31/24 14:30 10/31/24 14:31 10/31/24 14:45 Temperature Temperature Source Pulse Rate 113 H 110 H 97 H Pulse Rate [Right] Respiratory Rate 27 H 21 36 H Blood Pressure 131/87 Blood Pressure [Right Arm] Blood Pressure Mean [Right Arm] 02 Sat by Pulse Oximetry 88 L 91 L 88 L Oxygen Delivery Method 10/31/24 15:00 10/31/24 15:15 10/31/24 15:30 Temperature Temperature Source Pulse Rate 100 H 96 H 95 H Pulse Rate [Right] Respiratory Rate 37 H Blood Pressure 133/82 Blood Pressure [Right Arm] Blood Pressure Mean [Right Arm] 02 Sat by Pulse Oximetry 94 L 94 L 91 L Oxygen Delivery Method 10/31/24 16:00 10/31/24 16:30 10/31/24 17:00 Temperature Temperature Source Pulse Rate 95 H 97 H 104 H Pulse Rate [Right] Respiratory Rate 26 H 23 27 H Blood Pressure 136/80 133/76 123/74 Blood Pressure [Right Arm] Blood Pressure Mean [Right Arm] 02 Sat by Pulse Oximetry 93 L 94 L 90 L Oxygen Delivery Method Room Air Room Air Room Air 10/31/24 17:23 Temperature 98.7 F Temperature Source Pulse Rate 107 H Pulse Rate [Right] Respiratory Rate 20 Blood Pressure 123/74 Blood Pressure [Right Arm] Blood Pressure Mean [Right Arm] 02 Sat by Pulse Oximetry Oxygen Delivery Method Room Air Lab Data Lab Results 10/31/24 13:35: WBC 9.5, RBC 5.04, Hgb 15.9, Hct 44.5, MCV 88.3, MCH 31.5 H, MCHC 35.7 H, RDW 13.1, Plt Count 305, MPV 10.0, Neut % (Auto) 85.9 H, Lymph % (Auto) 7.8 L, [place] % (Auto) 5.2, Eos % (Auto) 0.3, Baso % (Auto) 0.4, Neut # (Auto) 8.2 H, Lymph # (Auto) 0.7, [place] # (Auto) 0.5, Eos # (Auto) 0.0, Baso # (Auto) 0.0, Total Counted 100, Neutrophils % (Manual) 89 H, Lymphocytes % (Manual) 6 L, Monocytes % (Manual) 5, Platelet Estimate Normal, RBC Morphology Normal, Sodium 135 L, Potassium 2.8 L*, Chloride 95 L, Carbon Dioxide 32 H, Anion Gap 10.8, BUN 8 L, Creatinine 0.70, Estimated Creat Clear 133, Estimated GFR 126, Est GFR ( Amer) 153, Glucose 110 H, Calcium 8.5, Magnesium 2.3, Total Bilirubin 0.9, AST 167 H, ALT 157 H, Alkaline Phosphatase 125, Troponin I < 0.01, Total Protein 7.5, Albumin 4.1, Globulin 3.4 H, Albumin/Globulin Ratio 1.2, Lipase 53, HIV Ag/Ab Combo Qual Negative 10/31/24 13:47: VBG pH 7.41, VBG pCO2 46.2, VBG pO2 31.3, VBG HCO3 28.8, VBG Total CO2 30.2 H, VBG O2 Saturation 66.4, VBG Base Excess 4.2 H, VBG Lactic Acid 1.8 10/31/24 13:54: SARS-CoV-2 (PCR) Not detected, Influenza A Untype (PCR) Not detected, Influenza Type B (PCR) Not detected 10/31/24 15:18: Lactate 1.4 10/31/24 15:20: Urine Color Yellow, Urine Appearance Clear, Urine pH 7.0, Ur Specific [place] 1.015, Urine Protein Negative, Urine Glucose (UA) Negative, Urine Ketones 1+, Urine Blood Trace-i, Urine Nitrate Negative, Urine Bilirubin Negative, Urine Urobilinogen 0.2, Ur Leukocyte Esterase Negative, Urine RBC Occasional, Urine WBC Occasional, Ur Squamous Epith Cells Occasional, Urine Bacteria 1+ 10/31/24 16:45: Troponin I < 0.01 Orders (Tests/Meds): ED MEDICATIONS Generic Name Dose Route Start Last Admin Trade Name Freq PRN Reason Stop Dose Admin Acetaminophen 650 mg 10/31/24 16:55 Acetaminophen 325mg Tab PO 11/30/24 16:54 Q4HP PRN Fever or Mild Pain (1-3) Albuterol/Ipratropium 3 ml 10/31/24 20:55 Ipratropium/Albuterol 3 Ml Neb IH 11/30/24 20:54 Q6RT YAMILET Guaifenesin 600 mg 10/31/24 21:00 Guaifenesin 600 Mg Tab.Er.12h PO 11/30/24 20:59 BID YAMILET Guaifenesin 10 ml 10/31/24 20:56 Guaifenesin/Dextromethorphan 200mg/20mg 10ml Udc PO 11/30/24 20:55 Q4HP PRN Cough Ceftriaxone Sodium 1 gm/ 50 mls @ 100 mls/hr 10/31/24 15:30 10/31/24 16:07 Sodium Chloride IV 11/10/24 15:29 100 mls/hr Q24H YAMILET Administration Ondansetron HCl 4 mg 10/31/24 16:55 Ondansetron 4mg/2ml Vial IV 11/30/24 16:54 Q8HP PRN Nausea Sodium Chloride 10 ml 10/31/24 13:35 Sodium Chloride 0.9% 10ml Flush Syringe IV 11/30/24 13:34 NEEDED PRN Maintain IV Site Discontinued Medications Generic Name Dose Route Start Last Admin Trade Name Freq PRN Reason Stop Dose Admin Sodium Chloride 1,000 mls @ 999 mls/hr 10/31/24 13:35 10/31/24 13:49 Sod Chlor 0.9% 1000ml Bag IV 10/31/24 14:35 999 mls/hr .Q1H1M ONE Administration Potassium Chloride/Water 100 mls @ 50 mls/hr 10/31/24 14:28 10/31/24 16:47 Potassium Chloride 20meq/100ml Ivpb IV 10/31/24 18:27 50 mls/hr Q2H YAMILET Administration Doxycycline Hyclate 100 mg/ 250 mls @ 166.667 mls/hr 10/31/24 15:20 10/31/24 16:48 Sodium Chloride IV 10/31/24 15:21 166.667 mls/hr ONCE ONE Administration Iopamidol 80 ml 10/31/24 14:24 10/31/24 14:26 Iopamidol-370 (76%);100ml Bottle IV 10/31/24 14:25 80 ml ONCE ONE Administration Potassium Chloride 40 meq 10/31/24 14:26 10/31/24 14:48 Potassium Chloride 20meq Tab PO 10/31/24 14:27 40 meq ONCE ONE Administration Sodium Chloride 10 ml 10/31/24 14:24 10/31/24 14:26 Sodium Chloride 0.9% 10ml Syr (Rad Only) IV 10/31/24 14:25 10 ml ONCE ONE Administration Sodium Chloride 50 ml 10/31/24 14:24 10/31/24 14:26 0.9 % Sodium Chloride 50 Ml Vial IV 10/31/24 14:25 50 ml ONCE ONE Administration ORDERS Category Date Time Status CT abdomen pelvis w con Stat Cat Scan 10/31/24 13:[address] angio chest PE protocol Stat Cat Scan 10/31/24 14:[address] chest wo con Stat Cat Scan 10/31/24 14:16 Completed Chest XR -- portable [XR chest portable] Stat Exams 10/31/24 13:34 Completed CBC w/Auto Diff [Complete Blood Count Auto Diff] Stat Lab 10/31/24 13:35 Completed CMP [Comprehensive Metabolic Panel] Stat Lab 10/31/24 13:35 Completed Complete Blood Count Auto Diff AMLAB Lab 11/01/24 06:00 Ordered Complete Blood Count Auto Diff AMLAB Lab 11/02/24 06:00 Ordered Complete Blood Count Auto Diff AMLAB Lab 11/03/24 06:00 Ordered Complete Blood Count Auto Diff AMLAB Lab 11/04/24 06:00 Ordered Complete Blood Count Auto Diff AMLAB Lab 11/05/24 06:00 Ordered Comprehensive Metabolic Panel AMLAB Lab 11/01/24 06:00 Ordered Comprehensive Metabolic Panel [facility]AB Lab 11/02/24 06:00 Ordered Comprehensive Metabolic Panel AMLAB Lab 11/03/24 06:00 Ordered Comprehensive Metabolic Panel AMLAB Lab 11/04/24 06:00 Ordered Comprehensive Metabolic Panel [facility] Lab 11/05/24 06:00 Ordered Fungitell Beta D Glucan Stat Lab 10/31/24 13:55 Received HIV Combo Stat Lab 10/31/24 13:35 Completed Hep C Ab with Reflex to RNA Stat Lab 10/31/24 13:35 Received Lactic Acid Stat Lab 10/31/24 15:18 Completed Lipase Stat Lab 10/31/24 13:35 Completed Magnesium AMLAB Lab 11/01/24 06:00 Ordered Magnesium AMLAB Lab 11/02/24 06:00 Ordered Magnesium AMLAB Lab 11/03/24 06:00 Ordered Magnesium AMLAB Lab 11/04/24 06:00 Ordered Magnesium AMLAB Lab 11/05/24 06:00 Ordered Magnesium Stat Lab 10/31/24 13:35 Completed Rapid PCR Covid and Flu A/B Stat Lab 10/31/24 13:54 Completed Troponin I Q3H Lab 10/31/24 16:45 Completed Troponin I Q3H Lab 10/31/24 19:43 Completed Troponin I Stat Lab 10/31/24 13:35 Completed UA [Urinalysis and Microscopic] Stat Lab 10/31/24 15:20 Completed Blood Culture Stat Micro 10/31/24 15:17 Received VBG [Venous Blood Gas] Stat RT 10/31/24 13:47 Completed Medical Decision Narrative: In summary patient is a 38-year-old male who presents the emergency department for evaluation of hemoptysis. Patient is hypoxic, tachycardic upon arrival, afebrile. Mild lower abdominal tenderness, tachycardia. Differential diagnosis includes pneumonia, pulmonary embolism, viral respiratory infection, dehydration. Initial workup will be conducted with labs, CTA chest, CT abdomen pelvis, EKG. Initial inventions include IV fluids. Initial workup reviewed by fl hypokalemia, pneumonia on imaging. Upon repeat evaluation patient has had improvement of symptoms with fluids and potassium replacement. Given this patient admitted to the hospitalist service given his hypoxia, tachycardia, electrolyte abnormalities and consolidation with patchy airspace disease on imaging. Karthikeyan Cox: I was consulted by the JOEL, and we discussed the complexity of the problems being addressed. I approved the treatment and management plan for this patient's care in the emergency department, thus performing a substantive portion of the medical decision making. I improved with initial workup and plan, initial hematologic labs are remarkable for hypokalemia which is being repleted, mild transaminitis initial troponin undetectably low. Antibiotics on board. Formal CT read pending at time of transition of care to the oncoming physician, Dr. Woods. I was consulted by the JOEL, and we discussed the complexity of the problems being addressed. I approved the treatment and management plan for this patient's care in the Emergency Department, thus performing a substantive portion of the medical decision making. Elvin Woods MD Critical Care <Karthikeyan Cox MD - Last Filed: 10/31/24 15:52> Critical Care Time Critical Care Time: No
[2024-10-31 13:52] LABS: Basophils % 0.4 % (0.1-2.0); Eosinophils % 0.3 % (0.1-12.0); Hematocrit 44.5 % (42.0-52.0); Hemoglobin 15.9 g/dL (14.1-18.0); Lymphocytes # 0.7 K/mm3 (0.7-4.5); Lymphocytes % 7.8 % (10-50); Mean Corpuscular HGB Conc 35.7 g/dL (31.8-35.4); Mean Corpuscular Hemoglobin 31.5 pg (27.0-31.2); Mean Corpuscular Volume 88.3 fl (80-94); Monocytes # 0.5 K/mm3 (0.1-1.0); Monocytes % 5.2 % (1.7-9.3); Neutrophils # 8.2 K/mm3 (1.8-7.8); Neutrophils % 85.9 % (37.0-80.0); Platelet Count 305 K/mm3 (142-424); Red Blood Count 5.04 M/mm3 (4.60-6.20); Red Cell Distribution Width 13.1 % (11.5-17.5); White Blood Count 9.5 K/mm3 (4.8-10.8)
[2024-10-31 13:55] LABS: MANUAL DIFFERENTIAL MANUAL DIFFERENTIAL (MANUAL DIFF)
[2024-10-31 13:59] LABS: Coronavirus 19, PCR Not Detected (NotDetected); Influenza A, PCR Not Detected (NotDetected); Influenza B, PCR Not Detected (NotDetected)
[2024-10-31 14:01] LABS: Lymphocytes % 6 % (10-50); Monocytes % 5 % (2-9); Neutrophils % 89 % (42-76); Total Cells Counted 100
[2024-10-31 14:02] LABS: Lipase 53 U/L (23-300); Platelet Estimate Normal; RBC Morphology Normal
[2024-10-31 14:03] LABS: Lactate Venous 1.8 mmol/L (0.4-2.0); VBG Base Excess 4.2 mmol/L (-2.4-2.3); VBG HCO3 28.8 mmol/L (23-30); VBG Oxygen Saturation 66.4 % (50-70); VBG PCO2 46.2 mmol/L (35-51); VBG PH 7.41 mmol/L (7.31-7.41); VBG PO2 31.3 mmol/L (28-40); VBG Total CO2 30.2 mmol/L (23-27)
[2024-10-31 14:03] LABS: Alanine Aminotransferase 157 U/L (12-78); Albumin Level 4.1 g/dl (3.5-5.0); Albumin/Globulin Ratio 1.2 (1.1-1.8); Alkaline Phosphatase 125 U/L (38-126); Anion Gap 10.8 mEq/L (5-15); Aspartate Amino Transferase 167 U/L (17-59); Bilirubin,Total 0.9 mg/dl (0.2-1.3); Blood Urea Nitrogen 8 mg/dl (9-20); Calcium 8.5 mg/dl (8.4-10.2); Carbon Dioxide 32 mmol/L (22.0-30.0); Chloride 95 mmol/L (98-107); Creatinine Clearance Estimated 133 mL/min (50-200); Estimated Glomerular Filt Rate 126 ml/min (>60); GFR (African American) 153 ML/MIN (>60); Globulin 3.4 g/dL (1.3-3.2); Glucose 110 mg/dl (74-100); Sodium 135 mmol/L (136-145); Total Protein,Serum 7.5 g/dl (6.3-8.2)
--- NOTE | 2024-10-31 14:06 | PC.NURSE ---
PT TO CT
--- NOTE | 2024-10-31 14:16 | CT_ITS ---
PROCEDURE INFORMATION: Exam: CT Chest Without Contrast; Diagnostic Exam date and time: 10/31/2024 2:18 PM Age: 38 years old Clinical indication: Cough; Additional info: R/O mass. Hemoptysis. TECHNIQUE: Imaging protocol: Diagnostic computed tomography of the chest without contrast. Radiation optimization: All CT scans at this facility use at least one of these dose optimization techniques: automated exposure control; mA and/or kV adjustment per patient size (includes targeted exams where dose is matched to clinical indication); or iterative reconstruction. COMPARISON: 1. CT CHEST WO CON 10/31/2024 2:18 PM 2. CR XR CHEST PORTABLE 10/31/2024 2:22 PM FINDINGS: Lungs: Focal area of [id number] size consolidation noted in the posterolateral right upper lobe just above the minor fissure that corresponds to the consolidation on chest x-ray. More widespread patchy airspace opacities noted scattered throughout the right upper and right lower lobes and to lesser degree the left lower lobe and mid to lower left upper lobe. Lung finch otherwise clear. Pleural spaces: Unremarkable. No pneumothorax. No pleural effusion. Heart: Unremarkable. No cardiomegaly. No pericardial effusion. Coronary arteries: No significant coronary artery calcifications. Lymph nodes: Enlarged predominantly calcified nodes in the right paratracheal and subcarinal region. Additional mildly enlarged noncalcified AP window nodes largest measuring 10 mm. Enlarged noncalcified right hilar nodes are identified. No definite left hilar adenopathy. Assessment of the hilar adenopathy limited without IV contrast. Vasculature: Unremarkable. No aortic aneurysm. Bones/joints: Unremarkable. No acute fracture. Soft tissues: Unremarkable. IMPRESSION: 1. Right upper lobe consolidative pneumonia in the associated more widespread patchy airspace disease also compatible with infection including the possibility of atypical infectious processes. Advise follow-up to ensure resolution of these findings. 2. Mild mediastinal and right hilar adenopathy.
[2024-10-31 14:21] LABS: Troponin I < 0.01 ng/ml (0.00-0.034)
--- NOTE | 2024-10-31 14:21 | CT_ITS ---
PROCEDURE INFORMATION: Exam: CTA Chest With Contrast Exam date and time: 10/31/2024 2:23 PM Age: 38 years old Clinical indication: Patient HX: Coughing up blood TECHNIQUE: Imaging protocol: Computed tomographic angiography of the chest with contrast. Exam focused on the arteries. 3D rendering (Not supervised by radiologist): MIP and/or 3D reconstructed images were created by the technologist. Radiation optimization: All CT scans at this facility use at least one of these dose optimization techniques: automated exposure control; mA and/or kV adjustment per patient size (includes targeted exams where dose is matched to clinical indication); or iterative reconstruction. Contrast material: ISO 370; Contrast volume: 80 ml; Contrast route: INTRAVENOUS (IV); COMPARISON: 1. CT ANGIO CHEST PE PROTOCOL 10/31/2024 2:[address] CHEST WO CON 10/31/2024 2:18 PM FINDINGS: Pulmonary arteries: Normal. No pulmonary emboli. Aorta: Unremarkable. No aortic aneurysm. No aortic dissection. Lungs: Posterolateral inferior right upper lobe consolidating airspace opacification compatible with pneumonia noted. Somewhat more widespread patchy airspace opacities noted bilaterally involving the lower and upper lobes right greater than left also compatible with infection. Pleural spaces: Unremarkable. No pneumothorax. No pleural effusion. Heart: Unremarkable. No cardiomegaly. No pericardial effusion. Lymph nodes: Enlarged noncalcified mediastinal lymph nodes are noted including the AP window region measuring up to 11 mm in subcarinal region measuring up to 12 mm. Extensive enlarged calcified right paratracheal and subcarinal nodes also noted. Mildly to moderately enlarged right hilar adenopathy largest measuring up to 16 mm. Mild left hilar adenopathy also noted. Bones/joints: Unremarkable. No acute fracture. Soft tissues: Unremarkable. IMPRESSION: 1. No evident PE. 2. Right upper lobe consolidated pneumonia. More widespread airspace disease also compatible with infection. Advise follow-up to ensure resolution. 3. Mediastinal and bilateral hilar adenopathy [id number]-left presumably reactive. Advise follow-up CT in 3 months to ensure resolution of this finding.
[2024-10-31 14:22] LABS: Potassium 2.8 mmoL/L (3.5-5.1)
--- NOTE | 2024-10-31 14:22 | PC.NURSE ---
reported critical potassium result to
[2024-10-31] MEDS: IOPAMIDOL-370 (76%);100ML BOTTLE 80 ML IV (14:26)
[2024-10-31] MEDS: SODIUM CHLORIDE 0.9% 10ML SYR (RAD ONLY) 10 ML IV (14:26)
[2024-10-31] MEDS: 0.9 % SODIUM CHLORIDE 50 ML VIAL IV (14:26)
[2024-10-31 14:43] LABS: Magnesium 2.3 mg/dl (1.6-2.3)
[2024-10-31] MEDS: KCl 20mEq/100ml 100 ML 50 MEQ IV ×2 (14:48→16:47)
[2024-10-31] MEDS: POTASSIUM CHLORIDE 20MEQ TAB 40 MEQ PO (14:48)
[2024-10-31 15:06] LABS: HIV Combo NEGATIVE (Negative)
[2024-10-31 15:23] LABS: Microscopic, Urine URINE MICROSCOPIC (MICROSCOPIC)
[2024-10-31 15:32] LABS: Appearance,Urine CLEAR (Clear); Bilirubin,Urine Negative (Negative); Blood, Urine TRACE-I (Negative); Color,Urine YELLOW (Yellow); Glucose,Urine (UA) Negative (Negative); Ketones,Urine 1+ (Negative); Leukocyte Esterase,Urine Negative (Negative); Nitrate,Urine Negative (Negative); Protein,Urine Negative (Negative); Specific Gravity, Urine 1.015 (1.005-1.030); Urobilinogen,Urine 0.2 EU/dl (0.2)
[2024-10-31 15:33] LABS: Lactic Acid 1.4 mmol/L (0.7-2.1)
[2024-10-31 16:01] LABS: Bacteria,Urine 1+ /lpf; RBC,Urine Occasional #/hpf (0-3); Squamous Epithelial Cell,Urine Occasional #/hpf (0-5); WBC,Urine Occasional #/hpf (0-3)
[2024-10-31] MEDS: CEFTRIAXONE SODIUM 1 GM in 0.9 % SODIUM CHLORIDE 50 ML IV (16:07)
--- NOTE | 2024-10-31 16:40 | PC.NURSE ---
ROUNDED ON PT NO NEEDS AT THIS TIME CALL LIGHT IN REACH, IS AT BS
[2024-10-31] MEDS: DOXYCYCLINE HYCLATE 100 MG in 0.9 % SODIUM CHLORIDE 250 ML 166.667 MG IV (16:48)
--- NOTE | 2024-10-31 17:02 | PC.NURSE ---
DENTAL SERVICE CHIEF NOTIFIED OF ADMISSION
--- NOTE | 2024-10-31 17:07 | PC.NURSE ---
report called to [facility]
--- NOTE | 2024-10-31 17:29 | PC.NURSE ---
arrived to floor by w/c at 5:27
[2024-10-31 17:32] LABS: Troponin I < 0.01 ng/ml (0.00-0.034)
[2024-10-31 20:18] LABS: Troponin I < 0.01 ng/ml (0.00-0.034)
[2024-10-31] MEDS: guaiFENesin 600 MG TAB.ER.12H PO (21:23)
[2024-10-31] MEDS: IPRATROPIUM/ALBUTEROL 3 ML NEB IH (21:52)
[2024-11-01] VITALS (13 sets, daily range): BP systolic 112–130; BP diastolic 66–71; PULSE 80–100; RESP 16–18; TEMP 36.7–37.3; O2SAT 86–93; BMI 20.6
[2024-11-01] MEDS: IPRATROPIUM/ALBUTEROL 3 ML NEB IH ×4 (00:41→18:38)
--- NOTE | 2024-11-01 04:07 | P.HP_ITS ---
<Statement entered by Geovany Grayson MD - 11/06/24 22:28> I personally evaluated the patient and agree with the plan as outlined by the [facility]IF[facility]ER BUTTON. History of Present Illness *Admission Date: 12/01/24 *Reason for visit:: Shortness of breath dyspnea *History of present illness: This 38-year-old male who smokes a pack and a half a day. Comes to the emergency room after feeling ill for a week with cough and congestion. Patient also noted with fever.. Patient with his cough developed some dark red hemoptysis. Patient reports he previously has a cough he has no nausea at this time but did have some problems about 4 days ago. When patient arrived in the emergency room worked up relatively normal blood pressure but heart rate remaining as high as 127. Noting that saturations. From 88% to 94%. Patient noted also for having abdominal pain. Radiographic findings was abdomen no acute findings. But found right upper lobe pneumonia consolidation mild mediastinal adenopathy the right greater than the left but no evidence of a PE. Patient also noted to be hypokalemic on lab results. With treatment received in the ER patient has improved as far as respiratory status and is much more comfortable.. Has not had any hemoptysis while during my exam but due to his age unexplained hypoxia hemoptysis and lower O2 saturations will place into the hospital for evaluation and continued treatment. Plan to consult pulmonology to rule atypical pulmonary infections. [facility] Disclaimer: The information contained in this section may have been updated after the paramjit ruiz was seen, as this information can be updated by other users. Medical History (Updated 11/01/24 @ 04:29 by Charles Zhang APRN) Otitis media Influenza A Sinusitis Social History Smoking Status: Current every day smoker alcohol intake: never current occupational status: employed Travel in the last 8 weeks: None Have you lived/traveled outside [place] in past 30 days?: No Contact w/someone who lives/traveled outside US past 30 days?: No Exposure to someone with infectious disease in past 14 days?: No Do you have a fever (greater than 100.4 F or 38 C)?: No Have you tested positive for COVID-19: No Exposed to someone with COVID-19 in past 14 days?: No Do you have a sore throat?: No Do you have a cough?: Yes Do you have any weakness?: No Do you have any diarrhea?: No Are you experiencing any unusual bleeding?: Yes Do you have any muscle aches/pain?: No Do you have any abdominal pain?: No Are you experiencing loss of taste or smell?: No Other Medical History Have you received the Flu Vaccine for this season: No Have you received the Pneumonia Vaccine: No Review of Systems Review of Systems Review of systems:: pertinent systems reviewed and negative unless documented below Constitutional Constitutional: Reports as per HPI Eyes Eyes: Reports as per HPI ENT Ears, Nose, Mouth, and Throat: Reports as per HPI *Cardiovascular Cardiovascular: Reports as per HPI *Respiratory Respiratory: Reports as per HPI, Reports cough, Reports hemoptysis and Reports pain with cough *Gastrointestinal Gastrointestinal: Reports as per HPI and Reports abdominal pain *Genitourinary Genitourinary: Reports as per HPI *Musculoskeletal Musculoskeletal: Reports as per HPI Integumentary/Breasts Skin/Breast: Reports as per HPI *Neurologic Neurologic: Reports as per HPI Psychiatric Psychiatric: Reports as per HPI Endocrine Endocrine: Reports as per HPI Hematologic/Lymphatic Hematologic/Lymphatic: Reports as per HPI Allergic/Immunologic Allergic/Immunologic: Reports as per HPI Meds Home Medications and Allergies Home Medications ?Medication ?Instructions ?Recorded ?Confirmed ?Type No Known Home Medications 10/31/24 10/31/24 History New Prescriptions to Start Prescriptions: Allergies Allergy/AdvReac Type Severity Reaction Status Date / Time Penicillins Allergy Verified 02/25/23 14:07 Exam Data for Last 24 hours Vital signs and Labs for Last 24 Hours: Temp Pulse Resp BP Pulse Ox O2 Del Method 98.8 F 86 16 128/68 97 Room Air 10/31/24 20:00 11/01/24 00:41 10/31/24 20:00 10/31/24 20:00 10/31/24 21:53 11/01/24 00:42 Laboratory Results - last 24 hr 10/31/24 13:35: WBC 9.5, RBC 5.04, Hgb 15.9, Hct 44.5, MCV 88.3, MCH 31.5 H, MCHC 35.7 H, RDW 13.1, Plt Count 305, MPV 10.0, Neut % (Auto) 85.9 H, Lymph % (Auto) 7.8 L, [place] % (Auto) 5.2, Eos % (Auto) 0.3, Baso % (Auto) 0.4, Neut # (Auto) 8.2 H, Lymph # (Auto) 0.7, [place] # (Auto) 0.5, Eos # (Auto) 0.0, Baso # (Auto) 0.0, Total Counted 100, Neutrophils % (Manual) 89 H, Lymphocytes % (Manual) 6 L, Monocytes % (Manual) 5, Platelet Estimate Normal, RBC Morphology Normal, Sodium 135 L, Potassium 2.8 L*, Chloride 95 L, Carbon Dioxide 32 H, Anion Gap 10.8, BUN 8 L, Creatinine 0.70, Estimated Creat Clear 133, Estimated GFR 126, Est GFR ( Amer) 153, Glucose 110 H, Calcium 8.5, Magnesium 2.3, Total Bilirubin 0.9, AST 167 H, ALT 157 H, Alkaline Phosphatase 125, Troponin I < 0.01, Total Protein 7.5, Albumin 4.1, Globulin 3.4 H, Albumin/Globulin Ratio 1.2, Lipase 53, HIV Ag/Ab Combo Qual Negative 10/31/24 13:47: VBG pH 7.41, VBG pCO2 46.2, VBG pO2 31.3, VBG HCO3 28.8, VBG Total CO2 30.2 H, VBG O2 Saturation 66.4, VBG Base Excess 4.2 H, VBG Lactic Acid 1.8 10/31/24 13:54: SARS-CoV-2 (PCR) Not detected, Influenza A Untype (PCR) Not detected, Influenza Type B (PCR) Not detected 10/31/24 15:18: Lactate 1.4 10/31/24 15:20: Urine Color Yellow, Urine Appearance Clear, Urine pH 7.0, Ur Specific [place] 1.015, Urine Protein Negative, Urine Glucose (UA) Negative, Urine Ketones 1+, Urine Blood Trace-i, Urine Nitrate Negative, Urine Bilirubin Negative, Urine Urobilinogen 0.2, Ur Leukocyte Esterase Negative, Urine RBC Occasional, Urine WBC Occasional, Ur Squamous Epith Cells Occasional, Urine Shiv ter[place] 1+ 10/31/24 16:45: Troponin I < 0.01 10/31/24 19:43: Troponin I < 0.01 I & O for Last 24 hours: Intake & Output 10/29/24 10/30/24 10/31/24 11/01/24 05:59 05:59 05:59 05:59 Intake Total 510 / 510 Output Total 0 / 0 Balance 510 / 510 Weight 145 lb Radiology Reports for the Last 24 Hours: Right upper lobe pneumonia, with mediastinal lymphadenopathy Constitutional Constitutional: mild distress and thin Comments: Patient is much more comfortable now after receiving breathing treatments and being on oxygen. *Routine HEENT Exam Head: Present normocephalic and atraumatic Eye: Present EOMI, PERRL and normal accommodation ENT: Present mucous membranes moist, oropharynx clear, dentition normal, nares patent and external ear normal *Routine Neck Exam Neck: Present supple and full ROM Routine Chest/Breast/Axilla Exam Comments: No chest wall abnormalities or pain found during exam *Routine Respiratory Exam Respiratory: Present decreased breath sounds, rhonchi, wheezes, normal respiratory effort, able to speak in complete sentences and symmetric chest movement Comments: When having the patient take deep breaths he does cough which causes some discomfort to the sternal area of his chest *Routine Cardiovascular Exam Cardiovascular: Present RRR, Normal S1 and tachycardia Comments: Brisk capillary refill, with no signs of edema, skin now is pink warm and dry *Routine Abdominal Exam Abdominal: Present soft and tenderness Comments: Mild tenderness to lower abdomen on palpation but no guarding *Routine Rectal Exam Rectal:: deferred *Routine Genitalia Exam Genitalia:: deferred *Routine Extremities Exam Extremities: Present full ROM, pulses intact and normal capillary refill Routine Back/Spine/Pelvis Exam Back/Spine: Present full ROM Comments: Exam found no injury or abnormalities of back *Routine Skin Exam Skin: Present intact, dry, warm and normal turgor *Routine Neurological Exam Neurological: Present alert, oriented X3, CN II-XII intact, moving all extremities, normal tone, vision grossly intact and hearing grossly intact Comments: No neurological deficits was found. Routine Psychiatric Exam Psychiatric: Present normal affect, normal thought process, cooperative, good insight and good judgment H&P: Result Impressions 1. Right upper lobe pneumonia with mediastinal lymphadenopathy and hemoptysis now with developing hypoxia 2. Smoker a pack and a half a day for 20+ years Imaging and Cardiology CT scan - chest: Additional comments: Right upper lobe consolidation,/pneumonia. Assessment and Plan *Assessment and plan (1) Pneumonia: Status: Acute Qualifiers: Pneumonia type: due to unspecified organism Laterality: right Lung location: upper lobe of lung Qualified Code(s): J18.9 - Pneumonia, unspecified organism Category: Medical Code(s): J18.9 - Pneumonia, unspecified organism (2) Hemoptysis: Status: Acute Category: Medical Code(s): R04.2 - Hemoptysis (3) Dyspnea: Status: Acute Qualifiers: Dyspnea type: shortness of breath Qualified Code(s): R06.02 - Shortness of breath Category: Medical Code(s): R06.00 - Dyspnea, unspecified (4) Hypoxia: Status: Acute Category: Medical Code(s): R09.02 - Hypoxemia (5) Hypokalemia: Status: Acute Category: Medical Code(s): E87.6 - Hypokalemia Plan 1. For right upper lobe pneumonia with hemoptysis and changes in O2 requirement. Patient will be admitted and continued upon pulmonary toileting with IV antibiotics.. Evaluation by pulmonology. With need to evaluate for an atypical pneumonia, awaiting for blood cultures. And will order sputum. 2. Hypokalemia will continue to monitor all electrolytes. Replace electrolytes as required 3. Smoker a pack and a half a day. Teaching done on the need to be able to become a non-smoker the effects on the lungs. Will add nicotine patch if needed
--- NOTE | 2024-11-01 06:00 | PC.NURSE ---
RT added 2L of O2 for decreasing sats (86%)
[2024-11-01 07:10] LABS: Prothrombin Time 11.2 seconds (10.1-12.5)
[2024-11-01 07:20] LABS: Alanine Aminotransferase 119 U/L (12-78); Albumin Level 3.3 g/dl (3.5-5.0); Albumin/Globulin Ratio 1.2 (1.1-1.8); Alkaline Phosphatase 99 U/L (38-126); Aspartate Amino Transferase 109 U/L (17-59); Bilirubin,Total 0.6 mg/dl (0.2-1.3); Blood Urea Nitrogen 7 mg/dl (9-20); Calcium 8.1 mg/dl (8.4-10.2); Carbon Dioxide 29 mmol/L (22.0-30.0); Chloride 104 mmol/L (98-107); Creatinine Clearance Estimated 140 mL/min (50-200); Estimated Glomerular Filt Rate 126 ml/min (>60); GFR (African American) 153 ML/MIN (>60); Globulin 2.8 g/dL (1.3-3.2); Glucose 103 mg/dl (74-100); Magnesium 2.5 mg/dl (1.6-2.3); Sodium 138 mmol/L (136-145); Total Protein,Serum 6.1 g/dl (6.3-8.2)
[2024-11-01 07:33] LABS: Basophils % 0.5 % (0.1-2.0); Eosinophils # 0.1 K/mm3 (0.0-0.4); Eosinophils % 1.8 % (0.1-12.0); Hematocrit 41.4 % (42.0-52.0); Hemoglobin 14.6 g/dL (14.1-18.0); Lymphocytes # 0.6 K/mm3 (0.7-4.5); Lymphocytes % 11.3 % (10-50); Mean Corpuscular HGB Conc 35.3 g/dL (31.8-35.4); Mean Corpuscular Hemoglobin 31.7 pg (27.0-31.2); Mean Platelet Volume 9.8 fl (7.4-10.4); Monocytes # 0.5 K/mm3 (0.1-1.0); Monocytes % 8.6 % (1.7-9.3); Neutrophils # 4.3 K/mm3 (1.8-7.8); Neutrophils % 77.3 % (37.0-80.0); Platelet Count 293 K/mm3 (142-424); Red Cell Distribution Width 13.6 % (11.5-17.5); White Blood Count 5.6 K/mm3 (4.8-10.8)
--- NOTE | 2024-11-01 07:43 | PC.NURSE ---
pt called out complaining about his IV in his right AC. pt reports its sore every time he moves it and he wants it removed. pt currently has a 20g IV in his left AC and an 18g IV in his right forearm. both flush and draw without pain. 20g IV removed from AC at this time per patient request. tip intact
[2024-11-01 07:51] LABS: Anion Gap 8.1 mEq/L (5-15); Potassium 3.1 mmoL/L (3.5-5.1)
[2024-11-01] MEDS: guaiFENesin 600 MG TAB.ER.12H PO ×2 (09:23→20:30)
[2024-11-01] MEDS: DOXYCYCLINE HYCL 100 MG TABLET PO ×2 (09:23→20:29)
[2024-11-01] MEDS: POTASSIUM CHLORIDE 20MEQ TAB 40 MEQ PO ×3 (09:23→17:45)
--- NOTE | 2024-11-01 09:55 | P.CONS_ITS ---
History of Present Illness History of present illness: Mr. Parson is a 38-year-old male current smoker presented to ER with worsening respiratory distress cough and congestion for the last 7 days along with concerning hemoptysis. Patient admits worsening respiratory distress since [place]. Denies any significant respiratory risk factor that. Current smoker, 1 to 1.5 pack/day. Denies any IV drug abuse. Intermittently smokes marijuana. 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 Denies any known sick contacts. Denies any hemoptysis since admission. [facility] Disclaimer: The information contained in this section may have been updated after the patient was seen, as this information can be updated by other users. Medical History (Updated 11/01/24 @ 10:58 by Cesia Whittington MD) Cavitary lesion of lung Acute respiratory failure with hypoxia Otitis media Influenza A Sinusitis Social History Smoking Status: Current every day smoker alcohol intake: never current occupational status: employed Travel in the last 8 weeks: None Have you lived/traveled outside [place] in past 30 days?: No Contact w/someone who lives/traveled outside US past 30 days?: No Exposure to someone with infectious disease in past 14 days?: No Do you have a fever (greater than 100.4 F or 38 C)?: No Have you tested positive for COVID-19: No Exposed to someone with COVID-19 in past 14 days?: No Do you have a sore throat?: No Do you have a cough?: Yes Do you have any weakness?: No Do you have any diarrhea?: No Are you experiencing any unusual bleeding?: Yes Do you have any muscle aches/pain?: No Do you have any abdominal pain?: No Are you experiencing loss of taste or smell?: No Review of Systems Review of Systems Review of systems:: pertinent systems reviewed and negative unless documented below Constitutional Constitutional: Reports as per HPI, Reports fatigue, Reports lethargy, Reports malaise, Denies night sweats and Denies weight loss Eyes Eyes: Reports as per HPI ENT Ears, Nose, Mouth, and Throat: Reports as per HPI *Cardiovascular Cardiovascular: Reports as per HPI *Respiratory Respiratory: Reports as per HPI, Reports cough, Reports hemoptysis and Reports pain with cough *Gastrointestinal Gastrointestinal: Reports as per HPI and Reports abdominal pain *Genitourinary Genitourinary: Reports as per HPI *Musculoskeletal Musculoskeletal: Reports as per HPI Integumentary/Breasts Skin/Breast: Reports as per HPI *Neurologic Neurologic: Reports as per HPI Psychiatric Psychiatric: Reports as per HPI Endocrine Endocrine: Reports as per HPI and Reports fatigue Hematologic/Lymphatic Hematologic/Lymphatic: Reports as per HPI Allergic/Immunologic Allergic/Immunologic: Reports as per HPI Pulmonology Exam Inpatient Vital signs and Labs for Last 24 Hours: Temp Pulse Resp BP Pulse Ox O2 Del Method O2 Flow Rate 98.1 F 96 H 17 121/70 93 L Nasal Cannula 2 11/01/24 08:00 11/01/24 08:00 11/01/24 08:00 11/01/24 08:00 11/01/24 08:00 11/01/24 08:00 11/01/24 08:00 Laboratory Results - last 24 hr 10/31/24 13:35: WBC 9.5, RBC 5.04, Hgb 15.9, Hct 44.5, MCV 88.3, MCH 31.5 H, M CHC 35.7 H, RDW 13.1, Plt Count 305, MPV 10.0, Neut % (Auto) 85.9 H, Lymph % (Auto) 7.8 L, [place] % (Auto) 5.2, Eos % (Auto) 0.3, Baso % (Auto) 0.4, Neut # (Auto) 8.2 H, Lymph # (Auto) 0.7, [place] # (Auto) 0.5, Eos # (Auto) 0.0, Baso # (Auto) 0.0, Total Counted 100, Neutrophils % (Manual) 89 H, Lymphocytes % (Manual) 6 L, Monocytes % (Manual) 5, Platelet Estimate Normal, RBC Morphology Normal, Sodium 135 L, Potassium 2.8 L*, Chloride 95 L, Carbon Dioxide 32 H, Anion Gap 10.8, BUN 8 L, Creatinine 0.70, Estimated Creat Clear 133, Estimated GFR 126, Est GFR ( Amer) 153, Glucose 110 H, Calcium 8.5, Magnesium 2.3, Total Bilirubin 0.9, AST 167 H, ALT 157 H, Alkaline Phosphatase 125, Troponin I < 0.01, Total Protein 7.5, Albumin 4.1, Globulin 3.4 H, Albumin/Globulin Ratio 1.2, Lipase 53, HIV Ag/Ab Combo Qual Negative 10/31/24 13:47: VBG pH 7.41, VBG pCO2 46.2, VBG pO2 31.3, VBG HCO3 28.8, VBG Total CO2 30.2 H, VBG O2 Saturation 66.4, VBG Base Excess 4.2 H, VBG Lactic Acid 1.8 10/31/24 13:54: SARS-CoV-2 (PCR) Not detected, Influenza A Untype (PCR) Not detected, Influenza Type B (PCR) Not detected 10/31/24 15:18: Lactate 1.4 10/31/24 15:20: Urine Color Yellow, Urine Appearance Clear, Urine pH 7.0, Ur Specific [place] 1.015, Urine Protein Negative, Urine Glucose (UA) Negative, Urine Ketones 1+, Urine Blood Trace-i, Urine Nitrate Negative, Urine Bilirubin Negative, Urine Urobilinogen 0.2, Ur Leukocyte Esterase Negative, Urine RBC Occasional, Urine WBC Occasional, Ur Squamous Epith Cells Occasional, Urine Bacteria 1+ 10/31/24 16:45: Troponin I < 0.01 10/31/24 19:43: Troponin I < 0.01 11/01/24 06:06: WBC 5.6 D, RBC 4.60, Hgb 14.6, Hct 41.4 L, MCV 90.0, MCH 31.7 H , MCHC 35.3, RDW 13.6, Plt Count 293, MPV 9.8, Neut % (Auto) 77.3, Lymph % (Auto) 11.3, [place] % (Auto) 8.6, Eos % (Auto) 1.8, Baso % (Auto) 0.5, Neut # (Auto) 4.3, Lymph # (Auto) 0.6 L, [place] # (Auto) 0.5, Eos # (Auto) 0.1, Baso # (Auto) 0.0, PT 11.2, INR 1.00, Sodium 138, Potassium 3.1 L, Chloride 104, Carbon Dioxide 29, Anion Gap 8.1, BUN 7 L, Creatinine 0.70, Estimated Creat Clear 140, Estimated GFR 126, Est GFR ( Amer) 153, Glucose 103 H, Calcium 8.1 L, M agnesium 2.5 H, Total Bilirubin 0.6, AST 109 H D, ALT 119 H, Alkaline Phosphatase 99, Total Protein 6.1 L, Albumin 3.3 L D, Globulin 2.8, Albumin/Globulin Ratio 1.2 I & O for Labs for Last 24 Hours: Intake & Output 10/29/24 10/30/24 10/31/24 11/01/24 23:59 23:59 23:59 23:59 Intake Total 150 / 510 460 / 460 Output Total 0 / 0 0 / 0 Balance 150 / 510 460 / 460 Weight 145 lb 152 lb 3.2 oz Constitutional: Present moderate distress and severe distress Head: Present normocephalic and atraumatic ENT: Present normal exam, normal oropharynx and mucous membranes moist Neck: Present normal inspection and full ROM Respiratory: Present respiratory distress, diminished air movement and able to speak in complete sentences; Absent wheezes Cardiac: Present S1/S2, Tachycardia and radial pulses present GI: Present soft and distention; Absent tenderness or guarding Skin: Present intact; Absent cyanosis or jaundice Neuro: Present alert, awake and oriented x 3 Extremities: Present normal inspection; Absent clubbing or cyanosis Psychiatric: Present normal affect and cooperative Meds Home Medications and Allergies Home Medications ?Medication ?Instructions ?Recorded ?Confirmed ?Type No Known Home Medications 10/31/24 10/31/24 History New Prescriptions to Start Prescriptions: Allergies Allergy/AdvReac Type Severity Reaction Status Date / Time Penicillins Allergy Verified 02/25/23 14:07 Results Laboratory Findings 11/01/24 06:06 11/01/24 06:06 PT/INR, D-dimer PT 11.2 seconds (10.1-12.5) 11/01/24 06:06 INR 1.00 (0.9-1.1) 11/01/24 06:06 Abnormal lab findings: Abnormal Labs 10/31/24 10/31/24 11/01/24 13:35 13:47 06:06 Hct 41.4 L MCH 31.5 H 31.7 H MCHC 35.7 H Neut % (Auto) 85.9 H Lymph % (Auto) 7.8 L Neut # (Auto) 8.2 H Lymph # (Auto) 0.6 L Neutrophils % (Manual) 89 H Lymphocytes % (Manual) 6 L VBG Total CO2 30.2 H VBG Base Excess 4.2 H Sodium 135 L Potassium 2.8 L* 3.1 L Chloride 95 L Carbon Dioxide 32 H BUN 8 L 7 L Glucose 110 H 103 H Calcium 8.1 L Magnesium 2.5 H AST 167 H 109 H D ALT 157 H 119 H Total Protein 6.1 L Albumin 3.3 L D Globulin 3.4 H Assessment and Plan *Assessment and plan (1) Hemoptysis: Status: Acute Category: Medical Code(s): R04.2 - Hemoptysis (2) Pneumonia: Status: Acute Qualifiers: Pneumonia type: due to unspecified organism Laterality: right Lung location: upper lobe of lung Qualified Code(s): J18.9 - Pneumonia, unspecified organism Category: Medical Code(s): J18.9 - Pneumonia, unspecified organism (3) Acute respiratory failure with hypoxia: Status: Acute Category: Medical Code(s): J96.01 - Acute respiratory failure with hypoxia (4) Cavitary lesion of lung: Status: Acute Category: Medical Code(s): J98.4 - Other disorders of lung Plan Mr. Parson is a 38-year-old male current smoker presented to ER with worsening respiratory distress cough and congestion for the last 7 days along with concerning hemoptysis. Patient admits worsening respiratory distress since [place]. Denies any significant respiratory risk symptoms prior to that. Current smoker, 1 to 1.5 pack/day. Denies any IV drug abuse. Intermittently smokes marijuana. 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 Denies any known sick contacts. Denies any hemoptysis since admission. CTA upon admission no evidence of pulmonary embolism. Right upper lobe fissure based consolidative airspace disease along with apical cavitation lesion noted. Also noted to bilateral diffuse micronodular airspace disease right greater than left. Calcified and noncalcified lymphadenopathy. Hilar noncalcified lymphadenopathy noted Auscultation bilateral rhonchi. Severe respiratory distress. Needing 2 to 4 L nasal cannula oxygen supplementation. Plan: Continue ceftriaxone and doxycycline pending sputum culture results. Will do sputum induction today. Continue nasal oxygen supplementation to maintain O2 saturation goal of 90% and above. On room air saturating 85 to 89%. Comprehensive respiratory viral PCR panel Follow-up with CRP, serum beta D glucan and WHITNEY screen Urine strep Legionella and histoplasma antigen Follow with blood cultures # Thank you for involving pulmonary in this patient care. Will continue to follow.
--- NOTE | 2024-11-01 10:00 | PC.NURSE ---
gave VBG to respiratory at this time
[2024-11-01 10:15] LABS: Lactate Venous 1.7 mmol/L (0.4-2.0); VBG Base Excess 3.2 mmol/L (-2.4-2.3); VBG HCO3 27.8 mmol/L (23-30); VBG Oxygen Saturation 80.2 % (50-70); VBG PCO2 44.8 mmol/L (35-51); VBG PH 7.41 mmol/L (7.31-7.41); VBG PO2 42.1 mmol/L (28-40); VBG Total CO2 29.2 mmol/L (23-27)
--- NOTE | 2024-11-01 10:35 | PC.NURSE ---
Dr. Badillo at bedside. stated pt could come off of continuous pulse ox at this time and to leave him on 1L NC O2 to keep O2 sat above 90%
--- NOTE | 2024-11-01 11:13 | PC.NURSE ---
Sputum specimen collected and sent to lab.
[2024-11-01 13:55] LABS: Coronavirus 19, PCR Not Detected (NotDetected); Influenza A, PCR Not Detected (NotDetected); Influenza B, PCR Not Detected (NotDetected); Respiratory Syncytial Virus Not Detected (NotDetected)
[2024-11-01 14:39] LABS: Human Rhinovirus Not Detected (NotDetected)
--- NOTE | 2024-11-01 16:00 | PC.NURSE ---
pt alert and oriented x 4. pt remained on 1 L of oxygen via NC for the remainder of the shift. tolerated well. pt ambulated independently from bed to chair and to the bathroom. tolerated well. no complaints at this time.
--- NOTE | 2024-11-01 16:16 | PC.NURSE ---
pt reported he snagged his IV in his right FA on the bed and that it was a little sore. IV patency checked by flushing NS through the line. pt complained of pain when flushing. IV removed at this time with tip intact. New 22g IV established to the left hand. flushed and chris. tolerated well.
[2024-11-01] MEDS: CEFTRIAXONE SODIUM 1 GM in 0.9 % SODIUM CHLORIDE 50 ML IV (16:29)
[2024-11-01 18:24] LABS: Amphetamine/Metha Screen,Urine Negative ng/ml (<1000); Benzodiazepines Screen,Urine Negative ng/ml (<200)
[2024-11-01 18:25] LABS: Barbiturates Screen,Urine Negative ng/ml (<200)
[2024-11-01 18:26] LABS: Cocaine Screen,Urine Negative ng/ml (<300); Methadone Screen,Urine Negative ng/ml (<300)
[2024-11-01 18:27] LABS: Cannabinoid Screen,Urine Positive ng/ml (<50); Opiate Screen,Urine Negative ng/ml (<300)
[2024-11-01 18:28] LABS: Phencyclidine Screen,Urine Negative ng/ml (<25)
[2024-11-02] VITALS (7 sets, daily range): BP systolic 109–122; BP diastolic 61–72; PULSE 70–110; RESP 15–16; TEMP 36.7–37.1; O2SAT 90–96; BMI 20.6
--- NOTE | 2024-11-02 03:44 | PC.NURSE ---
38 yo male pt is A/O X 4. He is independent with ambulation to BR. He was able to get up to the shower this shift and tolerated well. He did have some SOA with the exertion but recovered well with rest and 02. Pt has used 02 at 1 liter throughout shift. He continues to have some cough, reported at [employer]. [facility] on 11/01/24. Sinus tach per tele
[2024-11-02 05:53] LABS: HCV Ab Non Reactive (Non Reactive)
[2024-11-02] MEDS: IPRATROPIUM/ALBUTEROL 3 ML NEB IH ×2 (06:38→11:35)
[2024-11-02 06:49] LABS: Basophils % 0.6 % (0.1-2.0); Eosinophils # 0.2 K/mm3 (0.0-0.4); Eosinophils % 2.4 % (0.1-12.0); Hematocrit 45.1 % (42.0-52.0); Hemoglobin 15.2 g/dL (14.1-18.0); Lymphocytes # 0.8 K/mm3 (0.7-4.5); Lymphocytes % 10.7 % (10-50); Mean Corpuscular HGB Conc 33.7 g/dL (31.8-35.4); Mean Corpuscular Hemoglobin 30.5 pg (27.0-31.2); Mean Corpuscular Volume 90.6 fl (80-94); Mean Platelet Volume 9.7 fl (7.4-10.4); Monocytes # 0.5 K/mm3 (0.1-1.0); Monocytes % 7.1 % (1.7-9.3); Neutrophils # 5.6 K/mm3 (1.8-7.8); Neutrophils % 78.8 % (37.0-80.0); Platelet Count 367 K/mm3 (142-424); Red Blood Count 4.98 M/mm3 (4.60-6.20); Red Cell Distribution Width 13.8 % (11.5-17.5); White Blood Count 7.1 K/mm3 (4.8-10.8)
[2024-11-02 07:13] LABS: Alanine Aminotransferase 146 U/L (12-78); Albumin Level 3.6 g/dl (3.5-5.0); Albumin/Globulin Ratio 1.1 (1.1-1.8); Alkaline Phosphatase 112 U/L (38-126); Anion Gap 9.9 mEq/L (5-15); Aspartate Amino Transferase 119 U/L (17-59); Bilirubin,Total 0.6 mg/dl (0.2-1.3); Blood Urea Nitrogen 11 mg/dl (9-20); Calcium 8.7 mg/dl (8.4-10.2); Carbon Dioxide 26 mmol/L (22.0-30.0); Chloride 106 mmol/L (98-107); Creatinine Clearance Estimated 140 mL/min (50-200); Estimated Glomerular Filt Rate 126 ml/min (>60); GFR (African American) 153 ML/MIN (>60); Globulin 3.2 g/dL (1.3-3.2); Glucose 97 mg/dl (74-100); Magnesium 2.5 mg/dl (1.6-2.3); Potassium 3.9 mmoL/L (3.5-5.1); Sodium 138 mmol/L (136-145); Total Protein,Serum 6.8 g/dl (6.3-8.2)
[2024-11-02] MEDS: guaiFENesin 600 MG TAB.ER.12H PO ×2 (08:24→20:31)
[2024-11-02] MEDS: DOXYCYCLINE HYCL 100 MG TABLET PO (08:24)
--- NOTE | 2024-11-02 08:50 | XR_ITS ---
FINAL REPORT CLINICAL HISTORY: f/u pneumonia, hypoxic COMPARISON: CTA chest dated 10/31/2024 FINDINGS: A portable view of the chest was obtained. Cardiac and mediastinal silhouettes are within normal limits. There is right upper lobe consolidation consistent with pneumonia. Interstitial opacities could be related to pulmonary edema or interstitial pneumonia. There is no pleural effusion or pneumothorax. IMPRESSION: Right upper lobe consolidation consistent with pneumonia. Interstitial opacities could be related to pulmonary edema or interstitial pneumonia. Reviewed, Interpreted and Dictated by Rehana Pelletier MD Transcribed by Reina Barber Authenticated and [facility]
[2024-11-02 09:14] LABS: NT Pro Brain Natriuretic Pep. 44.8 pg/mL (0-125)
--- NOTE | 2024-11-02 09:47 | P.PN_ITS ---
Subjective *Date: 11/02/24 *Time: 10:53 Interval history: No acute respiratory vents overnight. Patient denies any new respiratory complaints. Pulmonology Exam Inpatient Vital signs and Labs for Last 24 Hours: Temp Pulse Resp BP Pulse Ox O2 Del Method O2 Flow Rate 98.7 F 108 H 15 121/72 91 L Nasal Cannula 1 11/02/24 08:00 11/02/24 08:00 11/02/24 08:00 11/02/24 08:00 11/02/24 08:00 11/02/24 08:00 11/02/24 08:00 Laboratory Results - last 24 hr 10/31/24 13:35: Hepatitis C Antibody Non reactive 11/01/24 06:06: C-Reactive Protein 59.0 H 11/01/24 10:00: VBG pH 7.41, VBG pCO2 44.8, VBG pO2 42.1 H, VBG HCO3 27.8, VBG Total CO2 29.2 H, VBG O2 Saturation 80.2 H, VBG Base Excess 3.2 H, VBG Lactic Acid 1.7 11/01/24 11:50: Urine Opiates Screen Negative, Urine Methadone Screen Negative, Ur Barbituates Screen Negative, Ur Phencyclidine Scrn Negative, Ur Amphetamines Screen Negative, U Benzodiazepines Scrn Negative, Urine Cocaine Screen Negative, U Marijuana (THC) Screen Positive H 11/01/24 13:38: SARS-CoV-2 (PCR) Not detected, Influenza Type A (PCR) Not detected, Influenza Type B (PCR) Not detected, RSV (PCR) Not detected, Rhinovirus (PCR) Not detected 11/02/24 06:26: WBC 7.1 D, RBC 4.98, Hgb 15.2, Hct 45.1, MCV 90.6, MCH 30.5, MCHC 33.7, RDW 13.8, Plt Count 367 D, MPV 9.7, Neut % (Auto) 78.8, Lymph % (Auto) 10.7, [place] % (Auto) 7.1, Eos % (Auto) 2.4, Baso % (Auto) 0.6, Neut # (Auto) 5.6, Lymph # (Auto) 0.8, [place] # (Auto) 0.5, Eos # (Auto) 0.2, Baso # (Auto) 0.0, Sodium 138, Potassium 3.9 D, Chloride 106, Carbon Dioxide 26, Anion Gap 9.9, BUN 11 D, Creatinine 0.70, Estimated Creat Clear 140, Estimated GFR 126, Est GFR ( Amer) 153, Glucose 97, Calcium 8.7, Magnesium 2.5 H, Total Bilirubin 0.6, AST 119 H, ALT 146 H, Alkaline Phosphatase 112, NT-Pro-B Natriuret Pep 44.8, Total Protein 6.8, Albumin 3.6, Globulin 3.2, Albumin/Globulin Ratio 1.1, TSH 1.30 Temp Pulse Resp BP Pulse Ox O2 Del Method O2 Flow Rate 98.1 F 96 H 17 121/70 93 L Nasal Cannula 2 11/01/24 08:00 11/01/24 08:00 11/01/24 08:00 11/01/24 08:00 11/01/24 08:00 11/01/24 08:00 11/01/24 08:00 Laboratory Results - last 24 hr 10/31/24 13:35: WBC 9.5, RBC 5.04, Hgb 15.9, Hct 44.5, MCV 88.3, MCH 31.5 H, MCH C 35.7 H, RDW 13.1, Plt Count 305, MPV 10.0, Neut % (Auto) 85.9 H, Lymph % (Auto) 7.8 L, [place] % (Auto) 5.2, Eos % (Auto) 0.3, Baso % (Auto) 0.4, Neut # (Auto) 8.2 H, Lymph # (Auto) 0.7, [place] # (Auto) 0.5, Eos # (Auto) 0.0, Baso # (Auto) 0.0, Total Counted 100, Neutrophils % (Manual) 89 H, Lymphocytes % (Manual) 6 L, Monocytes % (Manual) 5, Platelet Estimate Normal, RBC Morphology Normal, Sodium 135 L, Potassium 2.8 L*, Chloride 95 L, Carbon Dioxide 32 H, Anion Gap 10.8, BUN 8 L, Creatinine 0.70, Estimated Creat Clear 133, Estimated GFR 126, Est GFR ( Amer) 153, Glucose 110 H, Calcium 8.5, Magnesium 2.3, Total Bilirubin 0.9, AST 167 H, ALT 157 H, Alkaline Phosphatase 125, Troponin I < 0.01, Total Protein 7.5, Albumin 4.1, Globulin 3.4 H, Albumin/Globulin Ratio 1.2, Lipase 53, HIV Ag/Ab Combo Qual Negative 10/31/24 13:47: VBG pH 7.41, VBG pCO2 46.2, VBG pO2 31.3, VBG HCO3 28.8, VBG Total CO2 30.2 H, VBG O2 Saturation 66.4, VBG Base Excess 4.2 H, VBG Lactic Acid 1.8 10/31/24 13:54: SARS-CoV-2 (PCR) Not detected, Influenza A Untype (PCR) Not detected, Influenza Type B (PCR) Not detected 10/31/24 15:18: Lactate 1.4 10/31/24 15:20: Urine Color Yellow, Urine Appearance Clear, Urine pH 7.0, Ur Specific [place] 1.015, Urine Protein Negative, Urine Glucose (UA) Negative, Urine Ketones 1+, Urine Blood Trace-i, Urine Nitrate Negative, Urine Bilirubin Negative, Urine Urobilinogen 0.2, Ur Leukocyte Esterase Negative, Urine RBC Occasional, Urine WBC Occasional, Ur Squamous Epith Cells Occasional, Urine Bacteria 1+ 10/31/24 16:45: Troponin I < 0.01 10/31/24 19:43: Troponin I < 0.01 11/01/24 06:06: WBC 5.6 D, RBC 4.60, Hgb 14.6, Hct 41.4 L, MCV 90.0, MCH 31.7 H , MCHC 35.3, RDW 13.6, Plt Count 293, MPV 9.8, Neut % (Auto) 77.3, Lymph % (Auto) 11.3, [place] % (Auto) 8.6, Eos % (Auto) 1.8, Baso % (Auto) 0.5, Neut # (Auto) 4.3, Lymph # (Auto) 0.6 L, [place] # (Auto) 0.5, Eos # (Auto) 0.1, Baso # (Auto) 0.0, PT 11.2, INR 1.00, Sodium 138, Potassium 3.1 L, Chloride 104, Carbon Dioxide 29, Anion Gap 8.1, BUN 7 L, Creatinine 0.70, Estimated Creat Clear 140, Estimated GFR 126, Est GFR ( Amer) 153, Glucose 103 H, Calcium 8.1 L, Magnesium 2.5 H, Total Bilirubin 0.6, AST 109 H D, ALT 119 H, Alkaline Phosphatase 99, Total Protein 6.1 L, Albumin 3.3 L D, Globulin 2.8, Albumin/Globulin Ratio 1.2 I & O for Labs for Last 24 Hours: Intake & Output 10/30/24 10/31/24 11/01/24 11/02/24 23:59 23:59 23:59 23:59 Intake Total 150 / 510 460 / 460 270 / 270 Output Total 0 / 0 0 / 0 0 / 0 Balance 150 / 510 460 / 460 270 / 270 Weight 145 lb 152 lb 3.2 oz 152 lb 3.279 oz Intake & Output 10/29/24 10/30/24 10/31/24 11/01/24 23:59 23:59 23:59 23:59 Intake Total 150 / 510 460 / 460 Output Total 0 / 0 0 / 0 Balance 150 / 510 460 / 460 Weight 145 lb 152 lb 3.2 oz Microbiology Reports for the Last 24 Hours: Microbiology 10/31/24 15:38 Blood Blood Culture - Preliminary NO GROWTH AFTER 24 HOURS 10/31/24 15:17 Blood Blood Culture - Preliminary NO GROWTH AFTER 24 HOURS Constitutional: Present moderate distress and severe distress Head: Present normocephalic and atraumatic ENT: Present normal exam, normal oropharynx and mucous membranes moist Neck: Present normal inspection and full ROM Respiratory: Present respiratory distress, rhonchi, diminished air movement and able to speak in complete sentences; Absent wheezes Cardiac: Present S1/S2, Tachycardia and radial pulses present GI: Present soft and distention; Absent tenderness or guarding Skin: Present intact; Absent cyanosis or jaundice Neuro: Present alert, awake and oriented x 3 Extremities: Present normal inspection; Absent clubbing or cyanosis Psychiatric: Present normal affect and cooperative Assessment and Plan *Assessment and plan (1) Hemoptysis: Status: Acute Category: Medical Code(s): R04.2 - Hemoptysis (2) Pneumonia: Status: Acute Qualifiers: Laterality: right Lung location: upper lobe of lung Pneumonia type: due to unspecified organism Qualified Code(s): J18.9 - Pneumonia, unspecified organism Category: Medical Code(s): J18.9 - Pneumonia, unspecified organism (3) Acute respiratory failure with hypoxia: Status: Acute Category: Medical Code(s): J96.01 - Acute respiratory failure with hypoxia (4) Cavitary lesion of lung: Status: Acute Category: Medical Code(s): J98.4 - Other disorders of lung Plan Mr. Parson is a 38-year-old male current smoker presented to ER with worsening respiratory distress cough and congestion for the last 7 days along with concerning hemoptysis. Patient admits worsening respiratory distress since [place]. Denies any significant respiratory risk symptoms prior to that. Current smoker, 1 to 1.5 pack/day. Denies any IV drug abuse. Intermittently smokes marijuana. 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 Denies any known sick contacts. Denies any hemoptysis since admission. CTA upon admission no evidence of pulmonary embolism. Right upper lobe fissure based consolidative airspace disease along with apical cavitation lesion noted. Also noted to bilateral diffuse micronodular airspace disease right greater than left. Calcified and noncalcified lymphadenopathy. Hilar noncalcified lymphadenopathy noted Auscultation bilateral rhonchi. Severe respiratory distress. Needing 2 to 4 L nasal cannula oxygen supplementation. Interval update: No acute respiratory vents overnight. Continued needing 1 L -Supplementation to maintain O2 saturation goal of 90% and above. Mini respiratory viral PCR panel negative. CRP elevated at 51.0. Blood cultures no growth. Pending AFB and sputum cultures Plan: Incentive spirometry and flutter valve Trelegy Inhaler Recommend changing antibiotic levofloxacin to complete a total of 5-day course starting today. Continue nasal oxygen supplementation to maintain O2 saturation goal of 90% and above. Follow-up with serum beta D glucan and WHITNEY screen F/U Urine strep Legionella and histoplasma antigen Follow with final blood cultures # Thank you for involving pulmonary in this patient care. Recommend to collect all the workup ordered before patient's discharge. Will follow the patient in pulmonary clinic 4 to 5 days postdischarge.
--- NOTE | 2024-11-02 10:46 | PC.NURSE ---
Emilie [employer] called and reported the pt heart rate was in the 120s. when i checked on the patient he denies any complaints and reported that he just ambulated from the bathroom. pt HR down to 100 now and laying in bed.
[2024-11-02] MEDS: FUROSEMIDE 40MG/4ML VIAL 40 MG IV (11:05)
--- NOTE | 2024-11-02 11:57 | EXP.DC.SUM ---
General Admission date:: 10/31/24 HPI HPI HPI: This 38-year-old male who smokes a pack and a half a day. Comes to the emergency room after feeling ill for a week with cough and congestion. Patient also noted with fever.. Patient with his cough developed some dark red hemoptysis. Patient reports he previously has a cough he has no nausea at this time but did have some problems about 4 days ago. When patient arrived in the emergency room worked up relatively normal blood pressure but heart rate remaining as high as 127. Noting that saturations. From 88% to 94%. Patient noted also for having abdominal pain. Radiographic findings was abdomen no acute findings. But found right upper lobe pneumonia consolidation mild mediastinal adenopathy the right greater than the left but no evidence of a PE. Patient also noted to be hypokalemic on lab results. With treatment received in the ER patient has improved as far as respiratory status and is much more comfortable.. Has not had any hemoptysis while during my exam but due to his age unexplained hypoxia hemoptysis and lower O2 saturations will place into the hospital for evaluation and continued treatment. Plan to consult pulmonology to rule atypical pulmonary infections. Exam Data for Last 24 hours Vital signs and Labs for Last 24 Hours: Temp Pulse Resp BP Pulse Ox O2 Del Method O2 Flow Rate 98.7 F 108 H 15 121/72 91 L Nasal Cannula 1 11/02/24 08:00 11/02/24 08:00 11/02/24 08:00 11/02/24 08:00 11/02/24 08:00 11/02/24 08:00 11/02/24 08:00 Laboratory Results - last 24 hr 10/31/24 13:35: Hepatitis C Antibody Non reactive 11/01/24 10:00: MRSA (PCR) TNP 11/01/24 11:50: Urine Opiates Screen Negative, Urine Methadone Screen Negative, Ur Barbituates Screen Negative, Ur Phencyclidine Scrn Negative, Ur Amphetamines Screen Negative, U Benzodiazepines Scrn Negative, Urine Cocaine Screen Negative, U Marijuana (THC) Screen Positive H 11/01/24 13:38: SARS-CoV-2 (PCR) Not detected, Influenza Type A (PCR) Not detected, Influenza Type B (PCR) Not detected, RSV (PCR) Not detected, Rhinovirus (PCR) Not detected 11/02/24 06:26: WBC 7.1 D, RBC 4.98, Hgb 15.2, Hct 45.1, MCV 90.6, MCH 30.5, MCHC 33.7, RDW 13.8, Plt Count 367 D, MPV 9.7, Neut % (Auto) 78.8, Lymph % (Auto) 10.7, [place] % (Auto) 7.1, Eos % (Auto) 2.4, Baso % (Auto) 0.6, Neut # (Auto) 5.6, Lymph # (Auto) 0.8, [place] # (Auto) 0.5, Eos # (Auto) 0.2, Baso # (Auto) 0.0, Sodium 138, Potassium 3.9 D, Chloride 106, Carbon Dioxide 26, Anion Gap 9.9, BUN 11 D, Creatinine 0.70, Estimated Creat Clear 140, Estimated GFR 126, Est GFR ( Amer) 153, Glucose 97, Calcium 8.7, Magnesium 2.5 H, Total Bilirubin 0.6, AST 119 H, ALT 146 H, Alkaline Phosphatase 112, NT-Pro-B Natriuret Pep 44.8, Total Protein 6.8, Albumin 3.6, Globulin 3.2, Albumin/Globulin Ratio 1.1, TSH 1.30 I & O for Last 24 hours: Intake & Output 10/30/24 10/31/24 11/01/24 11/02/24 23:59 23:59 23:59 23:59 Intake Total 150 / 510 460 / 460 270 / 270 Output Total 0 / 0 0 / 0 0 / 0 Balance 150 / 510 460 / 460 270 / 270 Weight 65.771 kg 69.037 kg 69.039 kg Microbiology Reports for the Last 24 Hours: Microbiology 10/31/24 15:38 Blood Blood Culture - Preliminary NO GROWTH AFTER 24 HOURS 10/31/24 15:17 Blood Blood Culture - Preliminary NO GROWTH AFTER 24 HOURS Results Data Completed and Pending Labs on day of discharge: Labs from last 24 hours 11/02/24 11/01/24 11/01/24 06:26 13:38 11:50 WBC 7.1 D RBC 4.98 Hgb 15.2 Hct 45.1 MCV 90.6 MCH 30.5 MCHC 33.7 RDW 13.8 Plt Count 367 D MPV 9.7 Neut % (Auto) 78.8 Lymph % (Auto) 10.7 [place] % (Auto) 7.1 Eos % (Auto) 2.4 Baso % (Auto) 0.6 Neut # (Auto) 5.6 Lymph # (Auto) 0.8 [place] # (Auto) 0.5 Eos # (Auto) 0.2 Baso # (Auto) 0.0 Sodium 138 Potassium 3.9 D Chloride 106 Carbon Dioxide 26 Anion Gap 9.9 BUN 11 D Creatinine 0.70 Estimated Creat Clear 140 Estimated GFR 126 Est GFR ( Amer) 153 Glucose 97 Calcium 8.7 Magnesium 2.5 H Total Bilirubin 0.6 AST 119 H ALT 146 H Alkaline Phosphatase 112 NT-Pro-B Natriuret Pep 44.8 Total Protein 6.8 Albumin 3.6 Globulin 3.2 Albumin/Globulin Ratio 1.1 TSH 1.30 Urine Opiates Screen Negative Urine Methadone Screen Negative Ur Barbituates Screen Negative Ur Phencyclidine Scrn Negative Ur Amphetamines Screen Negative U Benzodiazepines Scrn Negative Urine Cocaine Screen Negative U Marijuana (THC) Screen Positive H SARS-CoV-2 (PCR) Not detected Hepatitis C Antibody Influenza Type A (PCR) Not detected Influenza Type B (PCR) Not detected RSV (PCR) Not detected Rhinovirus (PCR) Not detected MRSA (PCR) 11/01/24 10/31/24 10:00 13:35 WBC RBC Hgb Hct MCV MCH MCHC RDW Plt Count MPV Neut % (Auto) Lymph % (Auto) [place] % (Auto) Eos % (Auto) Baso % (Auto) Neut # (Auto) Lymph # (Auto) [place] # (Auto) Eos # (Auto) Baso # (Auto) Sodium Potassium Chloride Carbon Dioxide Anion Gap BUN Creatinine Estimated Creat Clear Estimated GFR Est GFR ( Amer) Glucose Calcium Magnesium Total Bilirubin AST ALT Alkaline Phosphatase NT-Pro-B Natriuret Pep Total Protein Albumin Globulin Albumin/Globulin Ratio TSH Urine Opiates Screen Urine Methadone Screen Ur Barbituates Screen Ur Phencyclidine Scrn Ur Amphetamines Screen U Benzodiazepines Scrn Urine Cocaine Screen U Marijuana (THC) Screen SARS-CoV-2 (PCR) Hepatitis C Antibody Non reactive Influenza Type A (PCR) Influenza Type B (PCR) RSV (PCR) Rhinovirus (PCR) MRSA (PCR) TNP Preliminary micro results at discharge 10/31/24 15:38 Blood Culture - Preliminary Blood NO GROWTH AFTER 24 HOURS 10/31/24 15:17 Blood Culture - Preliminary Blood NO GROWTH AFTER 24 HOURS DS: Diagnosis Discharge Diagnosis (1) Hemoptysis: Status: Acute Code(s): R04.2 - Hemoptysis (2) Pneumonia: Status: Acute Code(s): J18.9 - Pneumonia, unspecified organism Qualifiers: Pneumonia type: due to unspecified organism Laterality: right Lung location: upper lobe of lung Qualified Code(s): J18.9 - Pneumonia, unspecified organism (3) Acute respiratory failure with hypoxia: Status: Acute Code(s): J96.01 - Acute respiratory failure with hypoxia (4) Cavitary lesion of lung: Status: Acute Code(s): J98.4 - Other disorders of lung Meds Home Medications and Allergies Home Medications ?Medication ?Instructions ?Recorded ?Confirmed ?Type No Known Home Medications 10/31/24 10/31/24 History New Prescriptions to Start Prescriptions: Allergies Allergy/AdvReac Type Severity Reaction Status Date / Time Penicillins Allergy Verified 02/25/23 14:07 Discharge Plan Disposition Condition: Fair Follow up Plan Prescriptions/Medication Reconciliation: No Action No Known Home Medications Patient Discharge Instructions Patient Instructions: Pneumonia--Adult, Hypokalemia Print Language: Somali Providers Primary Care Provider: Nash Winchester Admit Provider: Geovany Grayson Attending Provider: Geovany Grayson
--- NOTE | 2024-11-02 12:05 | PC.NURSE ---
[employer] Sergeant called and reported the pt HR in the low 130s. MD notified. EKG ordered, performed and brought to MD. New verbal order of 500ml NS bolus. Communication sheet faxed to pharmacy
--- NOTE | 2024-11-02 12:34 | ECG_ITS ---
APPROVED REPORT Exam: Resting ECG HR:132 bpm ECG Measurements Heart Rate 132 AXES VA 153 P 90 QRSd 86 QRS -63 QT 297 T 95 QTc 375 Conclusion SINUS TACHYCARDIA LEFT ANTERIOR FASCICULAR BLOCK [QRS AXIS <= -45, QR IN I, RS IN II] ABNORMAL QRS-T ANGLE [QRS-T AXIS DIFFERENCE > 60] ABNORMAL ECG UNCONFIRMED REPORT Electronically signed by : Nash Winchester MD 11/03/2024 12:20:42
[2024-11-02 13:08] LABS: Antinuclear Antibodies (ANA) Negative (Negative)
[2024-11-02] MEDS: 0.9 % SODIUM CHLORIDE 500 ML 999 ML IV (13:20)
--- NOTE | 2024-11-02 22:05 | P.PN_ITS ---
Subjective *Date: 11/02/24 *Time: 20:55 Interval history: Doing somewhat better, seems anxious about whole hospitalization and needing O2. Breathing about the same. Exam Data for Last 24 hours Vital signs and Labs for Last 24 Hours: Temp Pulse Resp BP Pulse Ox O2 Del Method O2 Flow Rate 98.1 F 96 H 16 122/61 96 Nasal Cannula 1 11/02/24 20:00 11/02/24 20:00 11/02/24 20:00 11/02/24 20:00 11/02/24 20:00 11/02/24 20:00 11/02/24 20:00 Laboratory Results - last 24 hr 10/31/24 13:35: Hepatitis C Antibody Non reactive 11/01/24 06:06: WHITNEY Screen Negative 11/01/24 10:00: MRSA (PCR) Cancelled 11/02/24 06:26: WBC 7.1 D, RBC 4.98, Hgb 15.2, Hct 45.1, MCV 90.6, MCH 30.5, MCHC 33.7, RDW 13.8, Plt Count 367 D, MPV 9.7, Neut % (Auto) 78.8, Lymph % (Auto) 10.7, [place] % (Auto) 7.1, Eos % (Auto) 2.4, Baso % (Auto) 0.6, Neut # (Auto) 5.6, Lymph # (Auto) 0.8, [place] # (Auto) 0.5, Eos # (Auto) 0.2, Baso # (Auto) 0.0, Sodium 138, Potassium 3.9 D, Chloride 106, Carbon Dioxide 26, Anion Gap 9.9, BUN 11 D, Creatinine 0.70, Estimated Creat Clear 140, Estimated GFR 126, Est GFR ( Amer) 153, Glucose 97, Calcium 8.7, Magnesium 2.5 H, Total Bilirubin 0.6, AST 119 H, ALT 146 H, Alkaline Phosphatase 112, NT-Pro-B Natriuret Pep 44.8, Total Protein 6.8, Albumin 3.6, Globulin 3.2, [place] min/Globulin Ratio 1.1, TSH 1.30 I & O for Last 24 hours: Intake & Output 10/30/24 10/31/24 11/01/24 11/02/24 23:59 23:59 23:59 23:59 Intake Total 150 / 510 460 / 460 570 / 570 Output Total 0 / 0 0 / 0 0 / 0 Balance 150 / 510 460 / 460 570 / 570 Weight 65.771 kg 69.037 kg 69.039 kg Microbiology Reports for the Last 24 Hours: Microbiology 10/31/24 15:17 Blood Blood Culture - Preliminary NO GROWTH AFTER 48 HOURS 10/31/24 15:38 Blood Blood Culture - Preliminary NO GROWTH AFTER 48 HOURS Constitutional Constitutional: no acute distress *Routine HEENT Exam Head: Present normocephalic Eye: Present EOMI and PERRL ENT: Present mucous membranes moist *Routine Neck Exam Neck: Present supple; Absent lymphadenopathy *Routine Respiratory Exam Respiratory: Present CTA bilaterally *Routine Cardiovascular Exam Cardiovascular: Present RRR *Routine Abdominal Exam Abdominal: Present soft and normoactive bowel sounds; Absent tenderness *Routine Extremities Exam Extremities: Absent cyanosis, clubbing or edema *Routine Skin Exam Skin: Present warm; Absent rash *Routine Neurological Exam Neurological: Present alert and oriented X3 Assessment and Plan *Assessment and plan (1) Cavitary lesion of lung: Status: Acute Category: Medical Code(s): J98.4 - Other disorders of lung (2) Acute respiratory failure with hypoxia: Status: Acute Category: Medical Code(s): J96.01 - Acute respiratory failure with hypoxia (3) Hypoxia: Status: Acute Category: Medical Code(s): R09.02 - Hypoxemia (4) Dyspnea: Status: Acute Qualifiers: Dyspnea type: shortness of breath Qualified Code(s): R06.02 - Shortness of breath Category: Medical Code(s): R06.00 - Dyspnea, unspecified (5) Hemoptysis: Status: Acute Category: Medical Code(s): R04.2 - Hemoptysis (6) Hypokalemia: Status: Acute Category: Medical Code(s): E87.6 - Hypokalemia (7) Pneumonia: Status: Acute Qualifiers: Pneumonia type: due to unspecified organism Laterality: right Lung location: upper lobe of lung Qualified Code(s): J18.9 - Pneumonia, unspecified organism Category: Medical Code(s): J18.9 - Pneumonia, unspecified organism Plan Hakeem Parson is a 38 year old male who was admitted for acute hypoxic respiratory failure due to RUL pneumonia. #Acute hypoxic respiratory failure #RUL pneumonia - Most consistent with atypical pneumonia, perhaps viral. No further episodes of hemoptysis today. - Wean 1L as tolerated. - Switched to Levaquin today, from ceftriaxone and azithromycin per pulmonolgy recommendations. - Pulmonology following and assisting with care. Started Trelegy 100. - WBC stable, no signs of sepsis. Somewhat tachycardic around 90-100. Will given 1L fluid bolus. - Follow-up with serum beta D glucan and WHITNEY screen. - F/U Urine strep Legionella and histoplasma antigen. - Follow with final blood cultures. #Marijuana smoker - Nicotine patched daily. Provided smoking cessation counseling. FULL CODE Lovenox 40mg
[2024-11-03] VITALS: BP 128/72; PULSE 77; PULSE 85; RESP 16; TEMP 36.8; O2SAT 100
[2024-11-03 04:00] VITALS: BP 132/69; PULSE 90; PULSE 94; RESP 16; TEMP 36.7; O2SAT 93
--- NOTE | 2024-11-03 06:02 | PC.NURSE ---
Pt A&OX4 and has tolerated 1L nasal cannnula throughout the night. He has ambulated the room independently. He has been on tele remaining normal sinus to sinus tach when ambulating. No complaint at this time, call light within reach.
[2024-11-03] MEDS: IPRATROPIUM/ALBUTEROL 3 ML NEB IH (06:14)
[2024-11-03] MEDS: FLUTICASONE/UMECLIDIN/VILANTER 100/62.5/25MCG INHALER 1 PUFF IH (06:14)
[2024-11-03 06:15] VITALS: PULSE 101; PULSE 96; O2SAT 91
[2024-11-03 07:50] LABS: Basophils # 0.1 K/mm3 (0-0.2); Basophils % 0.8 % (0.1-2.0); Eosinophils # 0.2 K/mm3 (0.0-0.4); Eosinophils % 1.9 % (0.1-12.0); Hematocrit 46.7 % (42.0-52.0); Hemoglobin 16.4 g/dL (14.1-18.0); Lymphocytes % 12.2 % (10-50); Mean Corpuscular HGB Conc 35.1 g/dL (31.8-35.4); Mean Corpuscular Hemoglobin 31.5 pg (27.0-31.2); Mean Corpuscular Volume 89.8 fl (80-94); Mean Platelet Volume 9.6 fl (7.4-10.4); Monocytes # 0.6 K/mm3 (0.1-1.0); Monocytes % 7.4 % (1.7-9.3); Neutrophils # 6.5 K/mm3 (1.8-7.8); Neutrophils % 77.2 % (37.0-80.0); Platelet Count 437 K/mm3 (142-424); Red Cell Distribution Width 13.4 % (11.5-17.5); White Blood Count 8.4 K/mm3 (4.8-10.8)
[2024-11-03 08:00] VITALS: BP 118/63; PULSE 100; PULSE 102; RESP 18; TEMP 36.8; O2SAT 94
[2024-11-03 08:08] LABS: Alanine Aminotransferase 144 U/L (12-78); Albumin Level 3.8 g/dl (3.5-5.0); Albumin/Globulin Ratio 1.2 (1.1-1.8); Alkaline Phosphatase 131 U/L (38-126); Aspartate Amino Transferase 96 U/L (17-59); Bilirubin,Total 0.5 mg/dl (0.2-1.3); Blood Urea Nitrogen 15 mg/dl (9-20); Calcium 8.7 mg/dl (8.4-10.2); Carbon Dioxide 27 mmol/L (22.0-30.0); Chloride 103 mmol/L (98-107); Creatinine Clearance Estimated 136 mL/min (50-200); Estimated Glomerular Filt Rate 126 ml/min (>60); GFR (African American) 153 ML/MIN (>60); Globulin 3.3 g/dL (1.3-3.2); Glucose 111 mg/dl (74-100); Magnesium 2.5 mg/dl (1.6-2.3); Potassium 3.5 mmoL/L (3.5-5.1); Total Protein,Serum 7.1 g/dl (6.3-8.2)
[2024-11-03 08:43] LABS: Anion Gap 9.5 mEq/L (5-15); Sodium 136 mmol/L (136-145)
[2024-11-03] MEDS: guaiFENesin 600 MG TAB.ER.12H PO (08:49)
[2024-11-03 10:40] LABS: Thyroid Stimulating Hormone 1.58 uIU/mL (0.465-4.68)
--- NOTE | 2024-11-03 10:46 | PC.NURSE ---
pt walked a lap around the floor on no oxygen, with pulse ox reading 92%-91%
[2024-11-03 11:24] VITALS: BP 114/86; PULSE 88; RESP 16; TEMP 36.5; O2SAT 95
[2024-11-03] MEDS: levoFLOXacin 750 MG TABLET PO (11:40)
[2024-11-03] MEDS: 0.9 % SODIUM CHLORIDE 1000ML 1,000 ML 999 ML IV (11:41)
[2024-11-03 12:00] VITALS: PULSE 90
--- NOTE | 2024-11-03 12:33 | PC.NURSE ---
room air saturation 88%
--- NOTE | 2024-11-03 13:49 | EXP.DC.SUM ---
General Admission date:: 10/31/24 Hospital Course Hospital Course Hospital Course: Hakeem Parson is a 38 year old male who was admitted for acute hypoxic respiratory failure due to RUL pneumonia. #Acute hypoxic respiratory failure #RUL pneumonia - Most consistent with atypical pneumonia, perhaps viral. No further episodes of hemoptysis today. - Wean 1L as tolerated. - Switched to Levaquin, from ceftriaxone and azithromycin per pulmonolgy recommendations. - Pulmonology following and assisting with care. Continue Trelegy 100. - WBC stable, no signs of sepsis. - Respiratory, blood cultures negative. - Follow-up with serum beta D glucan and WHITNEY screen. - F/U Urine strep Legionella and histoplasma antigen. - Will finish course of levofloxicin for 3 more days, Trelegy. Will follow-up with pulmonology within 1 week. - Saturating 88% on room air at rest. Discharged with 1L nasal cannula. #Hypokalemia - Repleted. #Marijuana smoker - Nicotine patched daily. Provided smoking cessation counseling. FULL CODE Lovenox 40mg Exam Data for Last 24 hours Vital signs and Labs for Last 24 Hours: Temp Pulse Resp BP Pulse Ox O2 Del Method O2 Flow Rate 97.7 F 88 16 114/86 95 Nasal Cannula 1 11/03/24 11:24 11/03/24 11:24 11/03/24 11:24 11/03/24 11:24 11/03/24 11:24 11/03/24 12:39 11/03/24 12:39 Laboratory Results - last 24 hr 11/01/24 10:00: MRSA (PCR) Cancelled 11/03/24 07:00: WBC 8.4, RBC 5.20, Hgb 16.4, Hct 46.7, MCV 89.8, MCH 31.5 H, MCHC 35.1, RDW 13.4, Plt Count 437 H, MPV 9.6, Neut % (Auto) 77.2, Lymph % (Auto) 12.2, [place] % (Auto) 7.4, Eos % (Auto) 1.9, Baso % (Auto) 0.8, Neut # (Auto) 6.5, Lymph # (Auto) 1.0, [place] # (Auto) 0.6, Eos # (Auto) 0.2, Baso # (Auto) 0.1, Sodium 136, Potassium 3.5, Chloride 103, Carbon Dioxide 27, Anion Gap 9.5, BUN 15 D, Creatinine 0.70, Estimated Creat Clear 136, Estimated GFR 126, Est GFR ( Amer) 153, Glucose 111 H, Calcium 8.7, Magnesium 2.5 H, Total Bilirubin 0.5, AST 96 H, ALT 144 H, Alkaline Phosphatase 131 H, Total Protein 7.1, Albumin 3.8, Globulin 3.3 H, Albumin/Globulin Ratio 1.2, TSH 1.58 I & O for Last 24 hours: Intake & Output 10/31/24 11/01/24 11/02/24 11/03/24 23:59 23:59 23:59 23:59 Intake Total 150 / 510 460 / 460 570 / 770 200 / 200 Output Total 0 / 0 0 / 0 0 / 0 0 / 0 Balance 150 / 510 460 / 460 570 / 770 200 / 200 Weight 65.771 kg 69.037 kg 69.039 kg 66.996 kg Microbiology Reports for the Last 24 Hours: Microbiology 11/01/24 11:02 Sputum - Expectorated Sputum Gram Stain - Final 11/01/24 11:02 Sputum - Expectorated Sputum Sputum Culture - Final 10/31/24 15:17 Blood Blood Culture - Preliminary NO GROWTH AFTER 48 HOURS 10/31/24 15:38 Blood Blood Culture - Preliminary NO GROWTH AFTER 48 HOURS Constitutional Constitutional: no acute distress *Routine HEENT Exam Head: Present normocephalic Eye: Present EOMI and PERRL ENT: Present mucous membranes moist *Routine Neck Exam Neck: Present supple; Absent lymphadenopathy *Routine Respiratory Exam Respiratory: Present CTA bilaterally *Routine Cardiovascular Exam Cardiovascular: Present RRR *Routine Abdominal Exam Abdominal: Present soft and normoactive bowel sounds; Absent tenderness *Routine Extremities Exam Extremities: Absent cyanosis, clubbing or edema *Routine Skin Exam Skin: Present warm; Absent rash *Routine Neurological Exam Neurological: Present alert and oriented X3 Results Data Completed and Pending Labs on day of discharge: Labs from last 24 hours 11/03/24 11/01/24 07:00 10:00 WBC 8.4 RBC 5.20 Hgb 16.4 Hct 46.7 MCV 89.8 MCH 31.5 H MCHC 35.1 RDW 13.4 Plt Count 437 H MPV 9.6 Neut % (Auto) 77.2 Lymph % (Auto) 12.2 [place] % (Auto) 7.4 Eos % (Auto) 1.9 Baso % (Auto) 0.8 Neut # (Auto) 6.5 Lymph # (Auto) 1.0 [place] # (Auto) 0.6 Eos # (Auto) 0.2 Baso # (Auto) 0.1 Sodium 136 Potassium 3.5 Chloride 103 Carbon Dioxide 27 Anion Gap 9.5 BUN 15 D Creatinine 0.70 Estimated Creat Clear 136 Estimated GFR 126 Est GFR ( Amer) 153 Glucose 111 H Calcium 8.7 Magnesium 2.5 H Total Bilirubin 0.5 AST 96 H ALT 144 H Alkaline Phosphatase 131 H Total Protein 7.1 Albumin 3.8 Globulin 3.3 H Albumin/Globulin Ratio 1.2 TSH 1.58 MRSA (PCR) Cancelled Preliminary micro results at discharge 10/31/24 15:17 Blood Culture - Preliminary Blood NO GROWTH AFTER 48 HOURS 10/31/24 15:38 Blood Culture - Preliminary Blood NO GROWTH AFTER 48 HOURS DS: Diagnosis Discharge Diagnosis (1) Hemoptysis: Status: Acute Code(s): R04.2 - Hemoptysis (2) Pneumonia: Status: Acute Code(s): J18.9 - Pneumonia, unspecified organism Qualifiers: Laterality: right Lung location: upper lobe of lung Pneumonia type: due to unspecified organism Qualified Code(s): J18.9 - Pneumonia, unspecified organism (3) Acute respiratory failure with hypoxia: Status: Acute Code(s): J96.01 - Acute respiratory failure with hypoxia (4) Cavitary lesion of lung: Status: Acute Code(s): J98.4 - Other disorders of lung Meds Home Medications and Allergies Home Medications ?Medication ?Instructions ?Recorded ?Confirmed ?Type fluticasone fur. 100 mcg-umeclid 1 inh inhalation DAILY 30 days #60 11/03/24 Rx 62.5 mcg-vilant 25 mcg ea inhalat.powder (Trelegy Ellipta) levofloxacin 750 mg tablet 750 mg PO 1100 3 days #3 tabs 11/03/24 Rx New Prescriptions to Start Prescriptions: [id number] [Trelegy Ellipta] Geovany Grayson levofloxacin Geovany Grayson Allergies Allergy/AdvReac Type Severity Reaction Status Date / Time Penicillins Allergy Verified 04/28/23 14:07 Discharge Plan Disposition Patient Disposition: Home, Self-Care Condition: Fair Discharge Order Discharge Orders: Discharge Order (Routine); Ordered 11/03/24 Ordered By: Geovany Grayson Follow up Plan Follow up with: Cesia Whittington MD [Physician] - 11/07/24 (please call for appointment) Nash Winchester MD [Primary Care Provider] - 11/08/24 11:15 am Prescriptions/Medication Reconciliation: New levofloxacin 750 mg Tablet 750 mg PO 1100 3 Days Qty: 3 0RF Trelegy Ellipta 100-62.5-25 mcg Blister With Device 1 inh inhalation DAILY 30 Days Qty: 60 0RF Problem Reconciliation Problems Reviewed?: Yes Patient Discharge Instructions Additional Instructions: Please follow-up with Dr. Whittington, our assembler carbon brushes, within the next week. Patient Instructions: Pneumonia--Adult, Hypokalemia Print Language: Spanish Providers Primary Care Provider: Nash Winchester Admit Provider: Geovany Grayson Attending Provider: Geovany Grayson
[2024-11-03 15:08] LABS: QuantiFERON-TB Gold Plus Negative (Negative)
[2024-11-04 09:08] LABS: HBsAg Screen Negative (Negative); HCV Ab Non Reactive (Non Reactive); Hep A Ab, IGM Negative (Negative); Hep B Core Ab, IgM Negative (Negative)
[2024-11-05 11:24] LABS: Legionella pneumophila Urinary Negative (Negative)
--- NOTE | 2024-11-05 13:23 | CARE MANAGER ---
Contacted patient related to hospital discharge. Patient states he is feeling better. He denies questions or concerns and is aware of follow up appointments. JOSHUA Bhatia
[2024-11-05 14:09] LABS: Clinical Relevance Notes (.); Disclaimer Notes (.); Fungitell Value < 31.25 pg/mL (.); Interpretation Notes (.); Result Negative (.)
[2024-11-05 16:10] LABS: Body Fluid Culture, Sterile Not indicated. (.); Organism ID Not indicated. (.); Specimen Source Urine (.); Streptococcus pneumoniae Ag Negative (Negative)
[2024-11-06 10:18] LABS: Histoplasma Gal'mannan Ag Ur Negative (<0.2 ng/mL)
== END 2024-11-03 14:32 | disposition home or self-care (01) | DRG 193 ==
LOC: ER 15:59 → 2ND 17:06
PROVIDERS: Emergency Medicine; Internal Medicine Pulmonary Disease; Nurse Practitioner Family; Physician Assistant; Admitting Provider Student in an Organized Health Care Education/Training Program; Emergency Provider Emergency Medicine; PCP Internal Medicine Adolescent Medicine; Visit Provider Student in an Organized Health Care Education/Training Program
DX: J18.9 Pneumonia, unspecified organism (principal); J96.01 Acute respiratory failure with hypoxia; F17.210 Nicotine dependence, cigarettes, uncomplicated; J98.4 Other disorders of lung; E87.6 Hypokalemia; Z79.899 Other long term (current) drug therapy; F12.90 Cannabis use, unspecified, uncomplicated
CPT/HCPCS: 36415; 71045; 71250; 71275; 74177; 80053; 80074; 80307; 81001; 82803; 83605; 83690; 83735; 83880; 84443; 84484; 85007; 85025; 85610; 86038; 86140; 86480; 86803; 87040; 87070; 87116; 87186; 87205; 87206; 87385; 87389; 87449; 87631; 87636; 87899; 93005; 94640; 94761; 99285; G0238; J0696; J1940; J7030; J7620; Q9967